=== PATIENT | female | born 1995 | race Caucasian/White ===

== ENCOUNTER 2021-04-18 19:06 | Emergency (ER) | payer MEDICAID, SELFPAY ==
[2021-04-18 19:52] VITALS: BP 114/73; PULSE 95; RESP 18; TEMP 36.7; O2SAT 98
[2021-04-18 19:59] VITALS: BMI 26.6
--- NOTE | 2021-04-18 20:35 | ED_ITS ---
HPI - General Adult General Chief complaint: General Medical Stated complaint: needs a herpes culture Time Seen by Provider: 04/18/21 19:49 Source: patient Mode of arrival: ambulatory History of Present Illness HPI narrative: 25-year-old female presenting to the ED complaining of bump to perianal area that she noted today. Reports is painful/red. Concern for STI, is sexually active, admits was tested for STIs last week at [facility], results are pending. Denies pain with defecation, rectal bleeding, dysuria/hematuria, vaginal bleeding/discharge, abdominal pain, nausea/vomiting Onset (ago): unknown Related Data Previous Rx's Medication Instructions Recorded lidocaine HCl 2 % topical cream 1 appl TOPICAL BID PRN #118 ml 04/18/21 Allergies Allergy/AdvReac Type Severity Reaction Status Date / Time No Known Allergies Allergy Verified 04/18/21 19:59 pets Allergy Unknown rash Uncoded 10/26/14 00:00 Review of Systems Review of Systems: Constitutional: No Fever, No Chills ENT/Mouth: No Ear Pain, No Nasal Congestion, No sore throat, No Rhinorrhea, No Swallowing Difficulty Cardiovascular: No Chest Pain, No SOB Respiratory: No Cough, No Sputum Gastrointestinal: No Nausea, No Vomiting, No Diarrhea, No Constipation, No Abdominal pain, no rectal bleeding Genitourinary: No Dysuria, No Urinary Frequency, No Hematuria, No vaginal bleeding/discharge, No Urgency, No Flank Pain Musculoskeletal: No joint pain, No Myalgias, No Joint Swelling Skin: + Skin Lesions, No rash Yes all other systems are reviewed and are negative [facility] Past Medical History Attestation statement: The following information was validated with the patient. Social History Social History Advance Directives: No Advance Directives Information Provided: Yes Patient : No Physical Exam ED Vital Signs: Vital Signs - 24 hr 04/18/21 19:52 Temperature 98.0 F Pulse Rate 95 Respiratory Rate 18 Blood Pressure 114/73 Pulse Oximetry 98 BMI result Body Mass Index 26.6 Const General: cooperative, healthy appearing and no acute distress Orientation/consciousness: patient oriented x3 Limitations: no limitations HENMT Head: Yes normal to inspection, Yes normocephalic and Yes atraumatic Ears: hearing grossly normal bilaterally General nose exam: Normal external nose present Face and sinus: Yes normal facial exam Eyes General: appearance normal, both eyes and all related structures EOM: EOMs intact bilaterally Neck Neck: Yes normal visual inspection and Yes no meningeal signs Resp Effort & Inspection: normal respiratory effort and no respiratory distress Cardio Rate: regular rate Heart sounds: S1 normal heart sound present and S2 normal heart sound present GI Other: No evidence of herpetic like lesion Inspection: Yes normal to inspection Palpation (GI): Soft to palpation, nontender, no guarding and not rigid Rectal Exam - Female: External hemorrhoid(s) present (@ 4'o'clock position with overlying fissure. No thombosis. No cellulitis ) Skin Rashes: no rashes Wounds: no wounds Neuro General: patient oriented x3 and no meningeal signs Gait exam (Neuro): Normal gait present Extrem General: Yes normal to inspection Medical Decision Making MDM Narrative Medical decision making narrative: 25-year-old female presenting to the ED complaining of bump to perianal area that she noted today. Reports is painful/red. On exam vital signs stable, NAD, physical exam as above consistent with anal fissure. Also noted external nonthrombosed hemorrhoid. Patient does report straining/prolonged duration on toilet. Will swab for herpes culture due to patient concern, but hold on empiric treatment at this time Discussed worrisome signs and symptoms and strict return precautions. Medical Records Medical records reviewed: Yes I reviewed the patient's medical records. Lab Data Lab results reviewed: Yes I reviewed the patient's lab results. Discharge Plan Discharge Clinical Impression: Anal fissure, Hemorrhoid Patient Disposition: Home, Self-Care Instructions: Hemorrhoids (DC), Anal Fissure (ED) Additional Instructions: You have an anal fissure which is like a cut your perianal area. This is from straining and hard stools/constipation Start taking stool softeners. Avoid prolonged. On the toilet Topical lidocaine will help with pain. Your swab for herpes, the result will be back in 48-72 hours, we will call you with positive results only. Refrain from any sexual contact until we know the results of these cultures If symptoms persist or worsen, your unable to defecate, have rectal bleeding or abdominal pain return to the Prescriptions: New lidocaine HCl 2 % cream 1 appl topical BID PRN (Reason: pain) Qty: 118 0RF Referrals: Becca Teran DO [Primary Care Provider] - 5 days (As needed)
== END 2021-04-18 21:14 | disposition home or self-care (01) ==
PROVIDERS: Physician Assistant; Emergency Provider Internal Medicine; PCP Family Medicine
DX: K60.2 Anal fissure, unspecified (principal); K64.4 Residual hemorrhoidal skin tags
CPT/HCPCS: 87255; 99283

== ENCOUNTER 2022-11-07 09:36 | Emergency (ER) | payer MEDICAID, SELFPAY ==
[2022-11-07 09:59] VITALS: BP 110/60; PULSE 85; RESP 17; TEMP 36.4; O2SAT 96; BMI 28.1
--- NOTE | 2022-11-07 10:16 | ED_ITS ---
HPI - Asthma General Chief Complaint: Asthma Stated Complaint: asthma Time Seen by Provider: 11/07/22 10:08 Source: patient Mode of arrival: ambulatory Limitations: no limitations History of Present Illness HPI Narrative: Patient is a 27-year-old female with history of asthma presenting to the emergency department with 3 weeks of shortness of breath. Patient states that she has been using her albuterol inhaler as well as nebulizer treatments with only temporary relief. She denies fevers. Denies productive cough. Denies any chest pain. Does report some chest tightness. Reports that she used her nebulizer prior to arriving at the emergency department this morning. complaint: shortness of breath Onset (ago): week(s) Severity: moderate Associated symptoms: none Treatments Prior to Arrival: inhaled bronchodilator Related Data Previous Rx's Medication Instructions Recorded lidocaine HCl 2 % topical cream 1 appl topical BID PRN pain #118 mL 04/18/21 prednisone 20 mg tablet 20 mg PO DAILY 3 days #3 tabs 11/07/22 prednisone 20 mg tablet 40 mg PO DAILY 3 days #6 tabs 11/07/22 prednisone 20 mg tablet 60 mg PO DAILY 2 days #6 tabs 11/07/22 Allergies Allergy/AdvReac Type Severity Reaction Status Date / Time No Known Allergies Allergy Verified 04/18/21 19:59 pets Allergy Unknown rash Uncoded 10/26/14 00:00 Review of Systems Review of Systems: As per HPI. Yes all other systems are reviewed and are negative Constitutional: Constitutional: Reports as per HPI [facility] Social History Social History Advance Directives: No Advance Directives Information Provided: No Physical Exam Vital Signs: Vital Signs: Last Vital Signs Temp 97.5 F 11/07/22 09:59 Pulse 87 11/07/22 10:30 Resp 18 11/07/22 10:30 BP 110/60 11/07/22 09:59 Pulse Ox 96 11/07/22 09:59 O2 Del Method Room Air 11/07/22 09:59 BMI result Body Mass Index 28.1 Vital signs have been reviewed and appear to be correct. Blood pressure normal. Heart rate normal. Respiratory rate normal. Temperature normal. Oxygen saturation normal. Const: General: cooperative, healthy appearing and no acute distress Orientation/consciousness: oriented to person, oriented to place, oriented to time and patient oriented x3 Limitations: no limitations HEENT: Head: Yes normocephalic and Yes atraumatic Ears: external ears normal General nose exam: Normal external nose present Face and sinus: Yes face symmetric Mouth: oropharynx normal and moist mucous membranes Throat: Yes uvula midline Eyes: Pupils: Equal, round and reactive pupils present Neck: Neck: Yes normal visual inspection and Yes supple Resp: Effort & Inspection: normal respiratory effort and able to speak in complete sentences Auscultation: clear to auscultation bilaterally and diminished lung sounds (mildly diminished) diffuse Cardio: Rate: regular rate Rhythm: regular rhythm Heart sounds: S1 normal heart sound present and S2 normal heart sound present GI: Palpation (GI): Soft to palpation and nontender Auscultation: normoactive bowel sounds : General: Yes no CVA tenderness Back/Spine/Pelvis: Back: no CVA tenderness Skin: General skin exam: elasticity normal and turgor normal Neuro: General: oriented to person, oriented to place, oriented to time, patient oriented x3, moves all extremities, no focal motor deficits and CN's II- XI intact bilaterally Cranial nerves: Yes Equal, round and reactive pupils present Cognition (Neuro): normal cognition Extrem: General: Yes full ROM, Yes no pedal edema and Yes no calf tenderness Psych: Mental Status: mental status grossly normal Affect: normal affect Thought process: Normal thought process present Medications Administered Discontinued Medications Generic Name Dose Route Start Last Admin Trade Name Freq PRN Reason Stop Dose Admin Albuterol Sulfate 2.5 mg 11/07/22 10:14 11/07/22 10:28 Albuterol Sulfate (0.083%) 2.5 Mg/3 Ml Vial.Neb INHALE 11/07/22 10:15 2.5 mg ONCE ONE Administration Prednisone 60 mg 11/07/22 10:16 11/07/22 10:47 Prednisone 20 Mg Tablet PO 11/07/22 10:17 60 mg ONCE ONE Administration Medical Decision Making Medical Decision Making MDM Narrative: Patient is a 27-year-old female with history of asthma presenting to the emergency department with 3 weeks of shortness of breath. On exam patient is awake, A+Ox3, VS WNL, afebrile, normal neurological exam without focal deficits, lungs clear but mildly diminished throughout. Given reported symptoms and physical exam findings, initial differential includes asthma exacerbation, viral illness. Do not suspect bronchitis or pneumonia. Will give albuterol treatment in the ED as well as begin patient on a prednisone taper. Increased air moveme nt noted post treatment. Instructed patient to follow up with PCP this week. Prednisone taper prescribed. Return precautions discussed at bedside. Patient verbalized understanding of and agreement with plan. Differential Diagnosis Differential Diagnoses: The differential diagnosis associated with the presentation includes As per MDM. External Record Review External record reviewed: Inpatient record, Office record and Outpatient record Prescription Management I considered prescription management with: Other (Prednisone) Discharge Plan Discharge Clinical Impression: Asthma with acute exacerbation Patient Disposition: Home, Self-Care Instructions: Prednisone (By mouth), Asthma (DC) Additional Instructions: You were evaluated in the emergency department today for shortness of breath. Your symptoms improved in the ED with a breathing treatment. Your shortness of breath is most likely due to an asthma exacerbation. You are being prescribed a tapering dose of prednisone to decrease inflammation. Please schedule an appointment for follow-up with your primary care physician within 2 days. Return to the emergency department if you experience worsening cough, fever 100.4? F or greater, recurrent vomiting, chest pain, shortness of breath, or any other concerning symptoms. Prescriptions: New prednisone 20 mg tablet 60 mg PO DAILY 2 Days Qty: 6 0RF prednisone 20 mg tablet 40 mg PO DAILY 3 Days Qty: 6 0RF Rx Instructions: Begin taking the 40mg dose the day after your last 60mg dose prednisone 20 mg tablet 20 mg PO DAILY 3 Days Qty: 3 0RF Rx Instructions: Begin taking the 20mg dose the day after you take the last 40mg dose No Action lidocaine HCl 2 % cream 1 appl topical BID PRN (Reason: pain) Qty: 118 0RF
[2022-11-07] MEDS: Albuterol Sulfate (0.083%) 2.5 MG/3 ML VIAL.NEB INHALE (10:28)
[2022-11-07 10:30] VITALS: PULSE 87; RESP 18; O2SAT 97
[2022-11-07] MEDS: predniSONE 20 MG TABLET 60 MG PO (10:47)
== END 2022-11-07 12:00 | disposition home or self-care (01) ==
PROVIDERS: Emergency Provider Emergency Medicine; PCP Family Medicine
DX: J45.901 Unspecified asthma with (acute) exacerbation (principal)
CPT/HCPCS: 94640; 99284

== ENCOUNTER 2022-11-20 17:06 | Outpatient (REF) | payer MEDICAID, SELFPAY ==
[2022-11-20 20:46] LABS: CT PCR NOT DETECTED (Not Detect.); NG PCR NOT DETECTED (Not Detect.)
== END 2022-11-20 17:07 | disposition home or self-care (01) ==
LOC: HO.HHCLNP 17:06
PROVIDERS: Visit Provider Family Medicine
DX: Z01.419 Encounter for gynecological examination (general) (routine) without abnormal findings (principal)
CPT/HCPCS: 0353U; 88142

== ENCOUNTER 2022-12-28 18:13 | Outpatient (REF) | payer MEDICAID, SELFPAY ==
[2022-12-29 10:39] LABS: BV Int Neg Control Negative (Negative); BV Int Pos Control Positive (Positive)
== END 2022-12-28 18:14 | disposition home or self-care (01) ==
LOC: HO.HHCLNP 18:13
PROVIDERS: Visit Provider Nurse Practitioner Primary Care
DX: N94.9 Unspecified condition associated with female genital organs and menstrual cycle (principal)
CPT/HCPCS: 87480; 87510; 87660

== ENCOUNTER 2023-01-26 15:21 | Outpatient (REF) | payer MEDICAID, SELFPAY | END 2023-01-26 15:22 | disposition home or self-care (01) | LOC: HO.RESP 15:21 | PROVIDERS: PCP Family Medicine; Visit Provider Family Medicine | DX: J45.30 Mild persistent asthma, uncomplicated (principal) | CPT/HCPCS: 94010; 94727; 94729 ==

== ENCOUNTER 2023-02-09 17:50 | Emergency (ER) | payer MEDICAID, SELFPAY ==
--- NOTE | ~2023-02-09 | XR_ITS ---
EXAMINATION: XR CHEST CLINICAL INFORMATION: Shortness of breath COMPARISON: 08/24/2017 TECHNIQUE: 2 views of the chest were obtained. FINDINGS: No significant abnormality is noted involving the heart, lungs, mediastinum, bony thorax or soft tissues. XR/XR chest 2V IMPRESSION: Unremarkable examination.
[2023-02-09 17:57] VITALS: BP 115/61; PULSE 96; RESP 16; TEMP 36.7; O2SAT 99; BMI 30.4
--- NOTE | 2023-02-09 18:05 | ED.GENADULT ---
HPI - General Adult General Chief complaint: Upper Respiratory Symptoms Stated complaint: FEELS LIKE SHE CAN'T BREATHE/ASTHMA Time Seen by Provider: 02/09/23 19:47 Source: patient Mode of arrival: ambulatory Limitations: no limitations History of Present Illness HPI narrative: Patient is a 27-year-old female with history of asthma presenting to the ED with complaint of 2-3 months of worsening shortness of breath. States she went to the clinic, was treated with 2 weeks of steroids, saw scientific recruiter 2 weeks ago but has not been contacted yet with results of testing. Using albuterol with little relief. Denies chest pain or palpitations. Denies calf pain or swelling. MD complaint: Shortness of breath Onset (ago): month(s) Relieving factors: medication Exacerbating factors: none Associated symptoms: denies other symptoms Treatments prior to arrival: other (Albuterol) Related Data Previous Rx's Medication Instructions Recorded lidocaine HCl 2 % topical cream 1 appl topical BID PRN pain #118 mL 04/18/21 prednisone 20 mg tablet 20 mg PO DAILY 3 days #3 tabs 11/07/22 prednisone 20 mg tablet 40 mg (2 x 20 mg) PO DAILY 3 days 11/07/22 #6 tabs prednisone 20 mg tablet 60 mg (3 x 20 mg) PO DAILY 2 days 11/07/22 #6 tabs azithromycin 250 mg tablet See Rx Instructions PO .COMPLEX #6 02/09/23 tabs fluticasone propionate 100 2 inh inhalation BID #60 ea 02/09/23 mcg/actuation blister powder for inhalation (Flovent Diskus) prednisone 20 mg tablet 40 mg (2 x 20 mg) PO DAILY #10 tabs 02/09/23 Allergies Allergy/AdvReac Type Severity Reaction Status Date / Time No Known Allergies Allergy Verified 04/18/21 19:59 pets Allergy Unknown rash Uncoded 10/26/14 00:00 Review of Systems Review of Systems: As per HPI. Yes all other systems are reviewed and are negative Constitutional: Constitutional: Reports as per HPI Physical Exam ED Vital Signs: Vital Signs - 24 hr 02/09/23 17:57 Temperature 98.0 F Pulse Rate 96 Respiratory Rate 16 Blood Pressure 115/61 Pulse Oximetry 99 Oxygen Delivery Method Room Air BMI result Body Mass Index 30.4 Vital signs have been reviewed and appear to be correct. Blood pressure normal. Heart rate normal. Respiratory rate normal. Temperature normal. Oxygen saturation normal. Const General: cooperative, healthy appearing and no acute distress Orientation/consciousness: oriented to person, oriented to place, oriented to time and patient oriented x3 Limitations: no limitations HENMT Head: Yes normocephalic and Yes atraumatic Ears: external ears normal General nose exam: Normal external nose present Face and sinus: Yes face symmetric Mouth: oropharynx normal and moist mucous membranes Throat: Yes uvula midline Eyes Pupils: Equal, round and reactive pupils present Neck Neck: Yes normal visual inspection and Yes supple Resp Effort & Inspection: normal respiratory effort and able to speak in complete sentences Auscultation: clear to auscultation bilaterally and wheezes scattered wheezes Cardio Rate: regular rate Rhythm: regular rhythm Heart sounds: S1 normal heart sound present and S2 normal heart sound present GI Palpation (GI): Soft to palpation and nontender Auscultation: normoactive bowel sounds General: Yes no CVA tenderness Back/Spine/Pelvis Back: no CVA tenderness Skin General skin exam: elasticity normal and turgor normal Neuro General: oriented to person, oriented to place, oriented to time, patient oriented x3, moves all extremities, no focal motor deficits and CN's II-XI intact bilaterally Cranial nerves: Yes Equal, round and reactive pupils present Cognition (Neuro): normal cognition Extrem General: Yes full ROM, Yes no pedal edema and Yes no calf tenderness Psych Mental Status: mental status grossly normal Affect: normal affect Thought process: Normal thought process present Medical Decision Making Medical Decision Making MDM Narrative: Patient is a 27-year-old female with history of asthma presenting to the ED with complaint of 2-3 months of worsening shortness of breath. On exam patient is awake, A+Ox3, VS WNL, afebrile, normal neurological exam without focal deficits, physical exam findings as above. Given reported symptoms and physical exam findings, initial differential includes asthma exacerbation, bronchitis, pneumonia. Unlikely viral illness given length of symptoms. X-ray notable for no evidence of pneumonia. My interpretation is in agreement with the radiologist's interpretation. Will treat with azithromycin, short course of prednisone and prescribed Flovent, advised patient to follow-up with PCP/scientific recruiter. Return precautions discussed. Patient verbalized understanding of and agreement with plan. Differential Diagnosis Differential Diagnoses: The differential diagnosis associated with the presentation includes As per MDM. Admission/Observation Consideration of admission/observation: Escalation of care including admission/observation considered Independent Interpretation I performed an independent interpretation of an: Plain X-Ray Interpretation: No evidence of pneumonia on chest x-ray Radiology Impression Discussion of test interpretation with radiology: I have reviewed the radiologist's reading. Radiologist Impression: XR/XR chest 2V IMPRESSION: Unremarkable examination. External Record Review External record reviewed: Inpatient record, Office record and Outpatient record Prescription Management I considered prescription management with: Other Discharge Plan Discharge Clinical Impression: Asthma, Bronchitis Patient Disposition: Home, Self-Care Instructions: Asthma (DC) Additional Instructions: You were evaluated in the emergency department today for several months of shortness of breath. You are being prescribed a short course of steroids as well as an inhaled corticosteroid and a course of antibiotics. Please follow-up with your primary care provider and scientific recruiter. Return to the emergency department if you develop chest pain, palpitations, worsening shortness of breath, fever or any other concerning symptoms. Prescriptions: New prednisone 20 mg tablet 40 mg PO DAILY Qty: 10 0RF Flovent Diskus 100 mcg/actuation blister with device 2 inh inhalation BID Qty: 60 0RF azithromycin 250 mg tablet See Rx Instructions .ROUTE .COMPLEX Qty: 6 0RF Rx Instructions: For 250 mg dose pack: take 500 mg today (day 1), then 250 mg for 4 days (days 2-5) No Action lidocaine HCl 2 % cream 1 appl topical BID PRN (Reason: pain) Qty: 118 0RF prednisone 20 mg tablet 60 mg PO DAILY 2 Days Qty: 6 0RF prednisone 20 mg tablet 40 mg PO DAILY 3 Days Qty: 6 0RF Rx Instructions: Begin taking the 40mg dose the day after your last 60mg dose prednisone 20 mg tablet 20 mg PO DAILY 3 Days Qty: 3 0RF Rx Instructions: Begin taking the 20mg dose the day after you take the last 40mg dose
[2023-02-09] MEDS: Azithromycin 500 MG TABLET PO (20:38)
[2023-02-09] MEDS: predniSONE 20 MG TABLET 40 MG PO (20:38)
== END 2023-02-09 20:40 | disposition home or self-care (01) ==
LOC: HO.ED 20:27
PROVIDERS: Emergency Provider Student in an Organized Health Care Education/Training Program; PCP Family Medicine
DX: J40 Bronchitis, not specified as acute or chronic (principal); R06.02 Shortness of breath
CPT/HCPCS: 71046; 99282; 99283

== ENCOUNTER 2023-03-10 13:18 | Outpatient (AMB) | payer MEDICAID, SELFPAY ==
[2023-03-10 13:20] VITALS: BP 126/72; PULSE 87; O2SAT 98; BMI 30.6
--- NOTE | 2023-03-10 13:20 | MHC.OFFVIS ---
Intake Vital Signs 03/10/23 13:20 Height 5 ft 5 in Weight 184 lb BMI 30.6 BP 126/72 Blood Pressure Location Rt brachial Position Sitting Pulse 87 Pulse Source Pulse Oximeter Pulse Oximetry (%) 98 Oxygen Delivery Method Room Air Intake Visit Reasons: Moderate Persistent Asthma Stuffing Machine Operator Required: No Head Waiter/Waitress: Head Waiter/Waitress offered & declined Accompanied by: Self / Same As Patient Allergies trees, grass Allergy (Severe, Uncoded 03/10/23 13:28) Difficulty Breathing pets Allergy (Unknown, Uncoded 03/10/23 13:28) rash Medication List - Last Reconciled 03/10/23 by Darline Crook LPN albuterol sulfate 90 mcg/actuation (Ventolin HFA) 2 puffs inhalation Q4-6H PRN albuterol sulfate 2.5 mg inhalation Q4-6H PRN budesonide-formoterol 160-4.5 mcg/actuation (Symbicort) 2 puffs inhalation Q12H cetirizine (Zyrtec) 10 mg PO DAILY PRN lidocaine HCl 2% 1 appl topical BID PRN montelukast 10 mg PO DAILY prednisone 20 mg PO DAILY 3 days HPI Moderate Persistent Asthma HPI Details Danii is a pleasant 27 year old female, never smoker, with underlying asthma since childhood and eczema. She was referred by PCP for pulmonary evaluation. She was seen in [facility] twice over the last three months due to worsening control of asthma. She received two courses of prednisone during these evaluations. She has been suboptimally controlled on symbicort, singular, albuterol MDI/neb and zyrtec. Previously used advair with minimal effect. Most recently she reports symptoms consistent with dermatographia and worsening eczema. She continues with intermittent dyspnea with moderate exertion, wheezing, chest tightness and paroxsymal nocturnal dyspnea. She has been using her albuterol MDI on a daily basis with good effect. She reports multiple family members with asthma. She reports seasonal allergies using zyrtec with moderate effect. She denies any occupational exposures. [facility] Social History (Updated 03/10/23 @ 13:29 by Darline Crook LPN) Patient Tobacco Use Status: Never used Tobacco Review of Systems Const Denies chills, Denies excessive sweating, Denies fever(s), Denies headache(s) and Denies night sweats ENT Reports Normal hearing present, Denies headache(s), Denies nasal congestion, Denies nasal discharge, Denies post nasal drip and Denies sore throat Card Denies chest pain, Denies chest pain at rest, Denies chest pain with activity, Denies claudication, Denies leg edema and Denies orthopnea Resp Denies chest congestion, Denies excessive phlegm production, Denies pain on inspiration, Denies pain with cough and Denies stridor Musc Denies myalgias Neuro Reports Normal hearing present and Denies headache(s) Endo Denies excessive sweating Basilio/Lymph Denies lymphadenopathy Aller/Immun Denies seasonal rhinorrhea Physical Exam Vital Signs: Last Vital Signs Pulse 87 03/10/23 13:20 BP 126/72 03/10/23 13:20 Pulse Ox 98 03/10/23 13:20 Oxygen Delivery Method Room Air 03/10/23 13:20 BMI result Body Mass Index 30.6 Const General: cooperative, healthy appearing, comfortable, no acute distress, well developed and alert Orientation/consciousness: patient oriented x3 Limitations: no limitations HEENT Head: Yes normal to inspection, Yes normocephalic and Yes atraumatic Ears: hearing grossly normal bilaterally and external ears normal Eyes General: appearance normal, both eyes and all related structures Eyelids: Yes eyelids normal Sclerae: sclerae normal EOM: EOMs intact bilaterally Neck Neck: Yes normal visual inspection and Yes no lymphadenopathy Lymphatic: no lymphadenopathy noted Chest Chest palpation & inspection: normal inspection of the chest Resp Effort & Inspection: normal respiratory effort, able to speak in complete sentences, no audible wheezes, no cough, no stridor, not tachypneic, no tripod positioning and no use of accessory muscles Auscultation: clear to auscultation bilaterally Cardio Jugular venous distension: no JVD Rate: regular rate Rhythm: regular rhythm Skin Other: warm, dry General skin exam: no rashes or lesions noted Neuro General: patient oriented x3 Cranial nerves: Yes Normal hearing present Cognition (Neuro): normal cognition Gait exam (Neuro): Normal gait present Extrem General: Yes normal to inspection, Yes capillary refill normal, Yes no clubbing, cyanosis or edema and Yes no pedal edema Psych Appearance: grossly normal and well kempt Speech and movement: Normal speech and movement present and Clear speech present Affect: normal affect Attitude: cooperative Thought process: Normal thought process present Thought content: Normal thought content present Insight: Good insight present (Psych) Judgement: Good judgement present (Psych) Results Reviewed Results Reviewed: [address] [address] XRay Report Signed Patient: Danii Souza MR#: [id number] : 1995 Acct:[id number] Age/Sex: 27 / F ADM Date: 02/09/23 Loc: .ED Attending Dr: Ordering Physician: Sailaja Beasley NP Date of Service: 02/09/23 Procedure(s): XR chest 2V Accession Number(s): [id number] cc: Becca Teran DO; Sailaja Beasley NP~ EXAMINATION: XR CHEST CLINICAL INFORMATION: Shortness of breath COMPARISON: 08/24/2017 TECHNIQUE: 2 views of the chest were obtained. FINDINGS: No significant abnormality is noted involving the heart, lungs, mediastinum, bony thorax or soft tissues. XR/XR chest 2V IMPRESSION: Unremarkable examination. Dictated By: Nicolás Phillips MD Signed By: <Electronically signed by Nicolás Phillips MD in OV> 02/09/231946 Assessment & Plan Assessment & Plan (1) Asthma: Code(s): J45.909 - Unspecified asthma, uncomplicated (2) Environmental allergies: Code(s): Z91.09 - Other allergy status, other than to drugs and biological substances Plan Danii's symptoms are likely related to underlying asthma with an allergic component. Reviewed PFTs which are suggestive of asthma. CXR unremarkable. Will send for RAST. Encouraged patient to continue to use symbicort which she has recently started and will return for a close follow up, as she is likely a candidate for dupixent. We discussed an allergy referral, she has one placed and scheduled for July. All questions were answered and patient is in agreement of plan. Will follow up in 3-4 weeks or sooner if needed. Orders: Orders Complete Blood Count Auto Diff Today Z91.09 - Other allergy status, other than to drugs and biological substances Immunoglobulin E Today Z91.09 - Other allergy status, other than to drugs and biological substances Resp Allergy Profile Region I Today Z91.09 - Other allergy status, other than to drugs and biological substances Coding Level of Care Code New Pt Level 4 (22940) Diagnoses Asthma J45.909 Environmental allergies Z91.09
== END 2023-03-10 14:00 | disposition home or self-care (01) ==
PROVIDERS: PCP Family Medicine; Visit Provider Nurse Practitioner Family
DX: J45.909 Unspecified asthma, uncomplicated (principal); Z91.09 Other allergy status, other than to drugs and biological substances
CPT/HCPCS: 99204

== ENCOUNTER → 2023-03-10 13:18 | Outpatient (BNVA) | payer MEDICAID, SELFPAY | PROVIDERS: PCP Family Medicine; Visit Provider Nurse Practitioner Family | DX: Z91.09 Other allergy status, other than to drugs and biological substances (principal); Z79.899 Other long term (current) drug therapy | CPT/HCPCS: 99212 ==

== ENCOUNTER 2023-03-31 12:54 | Outpatient (REF) | payer MEDICAID, SELFPAY ==
[2023-03-31 13:10] LABS: MANUAL DIFF FLAG NO
[2023-03-31 14:05] LABS: Basophils Percent Auto 0.6 % (0-2); Eosinophils Absolute Auto 0.3 X10*3/uL (0.0-0.4); Eosinophils Percent Auto 4.2 % (0-4); Hematocrit 40.4 % (37.0-47.0); Hemoglobin 13.8 g/dl (12.0-16.0); Imm Gran Abs Auto 0.01 X10*3/uL (0.00-0.03); Imm Gran Pct Auto 0.1 % (0.0-0.4); Lymphocytes Absolute Auto 1.8 X10*3/uL (1.2-4.9); Lymphocytes Percent Auto 25.3 % (20-40); Mean Corpuscular HGB Conc 34.2 g/dl (31.0-35.0); Mean Corpuscular Hemoglobin 31.9 pg (27.0-33.0); Mean Corpuscular Volume 93.5 fL (80.0-98.0); Mean Platelet Volume 10.1 fL (9.4-12.3); Monocytes Absolute Auto 0.7 X10*3/uL (0.1-1.2); Monocytes Percent Auto 10.5 % (2-11); Neutrophils Absolute Auto 4.1 x10*3/uL (2.0-8.3); Neutrophils Percent Auto 59.3 % (45-73); Platelet Count 278 X10*3/uL (160-400); Red Blood Count 4.32 X10*6/uL (4.20-5.50); Red Cell Distribution Width 12.2 % (11.0-16.0); White Blood Count 6.9 X10*3/uL (4.8-10.8)
[2023-04-02 18:59] LABS: Class Alternaria alternata 0/1; Class Aspergillus fumigatus 0/1; Class Bermuda Grass 1; Class Birch 4; Class Cat Dander 5; Class Cladosporium herbarum 0/1; Class Cockroach 2; Class Common Ragweed 2; Class Cottonwood 1; Class Derm. pterony 2; Class Dermatophagoides farinae 2; Class Dog Dander 6; Class Elm 2; Class Maple Box Elder 1; Class Mountain Cedar 1; Class Mouse Urine Protein 5; Class Mugwort 1; Class Oak 3; Class Penicillium crysogenum 0/1; Class Rough Pigweed 1; Class Sheep Sorrel 1; Class Sycamore 1; Class Timothy Grass 1; Class Walnut Tree 2; Class White Ash 1; Class White Mulberry 1; D001 IgE D pteronyssinus 0.97 kU/L; D002 - IgE D farinae 0.85 kU/L; E005 - IgE Dog Dander >100 kU/L; G002 IgE Bermuda Grass 0.54 kU/L; G006 - IgE Timothy Grass 0.66 kU/L; I006-IgE Cockroach, German 2.52 kU/L; Immunoglobulin E 3172 kU/L (<OR=114); M001 IgE Penicillium chrysogen 0.18 kU/L; M003 - IgE Aspergillus fumigat 0.21 kU/L; M006 - IgE Alternaria alternat 0.13 kU/L; T001 IgE Maple/Box Elder 0.63 kU/L; T006 - IgE Cedar, Mountain 0.52 kU/L; T008 IgE Elm, American 0.84 kU/L; T010 - IgE Walnut 0.74 kU/L; T011 - IgE Maple Leaf Sycamore 0.63 kU/L; T014 - IgE Cottonwood 0.67 kU/L; T015 - IgE Ash, White 0.67 kU/L; T070 - IgE White Mulberry 0.51 kU/L; W001 - IgE Ragweed, Short 0.78 kU/L; W006 - IgE Mugwort 0.53 kU/L; W014 IgE Pigweed, Common 0.54 kU/L
== END 2023-03-31 12:55 | disposition home or self-care (01) ==
LOC: HO.LAB 12:54
PROVIDERS: PCP Family Medicine; Visit Provider Nurse Practitioner Family
DX: Z91.09 Other allergy status, other than to drugs and biological substances (principal)
CPT/HCPCS: 36415; 82785; 85025; 86003

== ENCOUNTER 2023-04-07 10:23 | Outpatient (AMB) | payer MEDICAID, SELFPAY ==
--- NOTE | 2023-04-07 10:57 | A.OFFVIS_ITS ---
Intake Vital Signs 3 04/07/23 10:58 Height 5 ft 5 in Weight 179 lb BMI 29.8 BP 114/70 Blood Pressure Location Rt brachial Position Sitting Pulse 72 Pulse Source Pulse Oximeter Pulse Oximetry (%) 100 Oxygen Delivery Method Room Air Intake Visit Reasons: moderate persistent asthma : 4 week f/u Electric Sealing Machine Operator Required: No Surface Grinder Tender: Surface Grinder Tender offered & declined Accompanied by: Self / Same As Patient Allergies trees, grass Allergy (Severe, Uncoded 04/07/23 11:00) Difficulty Breathing pets Allergy (Unknown, Uncoded 04/07/23 11:00) rash Medication List - Last Reconciled 04/07/23 by Darline Crook LPN albuterol sulfate 90 mcg/actuation (Ventolin HFA) 2 puffs inhalation Q4-6H PRN albuterol sulfate 2.5 mg inhalation Q4-6H PRN budesonide-formoterol 160-4.5 mcg/actuation (Symbicort) 2 puffs inhalation Q12H cetirizine (Zyrtec) 10 mg PO DAILY PRN montelukast 10 mg PO DAILY HPI moderate persistent asthma : 4 week f/u 2 HPI0 Details Danii is a pleasant 27 year old female, never smoker, with underlying asthma since childhood, eczema and dermatographism. She was seen in [facility] twice over the last three months due to worsening control of asthma, recieving two courses of prednisone during these evaluations. She has been suboptimally controlled on symbicort 160mcg, singular, albuterol MDI/neb and zyrtec BID. She continues to use daily albuterol due to persistent chest tightness, dyspnea and wheezing. Today she presents to review labs, PFT and discuss biologic therapy. [facility] Social History (Updated 04/07/23 @ 11:02 by Darline Crook LPN) Patient Tobacco Use Status: Never used Tobacco Smoked in Last 30 Days: No Review of Systems Const Denies chills, Denies excessive sweating, Denies fever(s), Denies headache(s) and Denies night sweats ENT Reports Normal hearing present, Denies headache(s), Denies nasal congestion, Denies nasal discharge, Denies post nasal drip and Denies sore throat Card Denies chest pain, Denies chest pain at rest, Denies chest pain with activity, Denies claudication, Denies leg edema and Denies orthopnea Resp Denies chest congestion, Denies excessive phlegm production, Denies pain on inspiration, Denies pain with cough and Denies stridor Musc Denies myalgias Neuro Reports Normal hearing present and Denies headache(s) Endo Denies excessive sweating Basilio/Lymph Denies lymphadenopathy Aller/Immun Denies seasonal rhinorrhea Physical Exam Vital Signs: Last Vital Signs Pulse 72 04/07/23 10:58 BP 114/70 04/07/23 10:58 Pulse Ox 100 04/07/23 10:58 Oxygen Delivery Method Room Air 04/07/23 10:58 BMI result Body Mass Index 29.8 Const General: cooperative, healthy appearing, comfortable, no acute distress, well developed and alert Orientation/consciousness: patient oriented x3 Limitations: no limitations HEENT Head: Yes normal to inspection, Yes normocephalic and Yes atraumatic Ears: hearing grossly normal bilaterally and external ears normal Eyes General: appearance normal, both eyes and all related structures Eyelids: Yes eyelids normal Sclerae: sclerae normal EOM: EOMs intact bilaterally Neck Neck: Yes normal visual inspection and Yes no lymphadenopathy Lymphatic: no lymphadenopathy noted Chest Chest palpation & inspection: normal inspection of the chest Resp Effort & Inspection: normal respiratory effort, able to speak in complete sentences, no audible wheezes, no cough, no stridor, not tachypneic, no tripod positioning and no use of accessory muscles Auscultation: clear to auscultation bilaterally Cardio Jugular venous distension: no JVD Rate: regular rate Rhythm: regular rhythm Skin Other: warm, dry, eczema on BUE Neuro General: patient oriented x3 Cranial nerves: Yes Normal hearing present Cognition (Neuro): normal cognition Gait exam (Neuro): Normal gait present Extrem General: Yes normal to inspection, Yes capillary refill normal, Yes no clubbing, cyanosis or edema and Yes no pedal edema Psych Appearance: grossly normal and well kempt Speech and movement: Normal speech and movement present and Clear speech present Affect: normal affect Attitude: cooperative Thought process: Normal thought process present Thought content: Normal thought content present Insight: Good insight present (Psych) Judgement: Good judgement present (Psych) Results Reviewed Results Reviewed: Assessment & Plan Assessment & Plan (1) Asthma: Code(s): J45.909 - Unspecified asthma, uncomplicated Qualifiers: Asthma severity: severe Asthma persistence: persistent Asthma complication type: unspecified Qualified Code(s): J45.50 - Severe persistent asthma, uncomplicated (2) Environmental allergies: Code(s): Z91.09 - Other allergy status, other than to drugs and biological substances Plan Reviewed RAST which revealed multiple environmental allergens as well as IgE of 3172 and elevated eosinophils. PFT also revealed moderate obstructive with reversibility postbronchodilation and significant response to bronchodilators. She continues with persistent wheezing, chest tightness and dyspnea despite high dose symbicort and has required two doses of steroids in the last 6 months. We discussed starting dupixent and patient would like to move forward with this treatment. Will send prescription for loading dose of 600 mg followed by 300 mg q2 weeks. She is aware she will be notified once dupixent is approved. All questions were answered and patient is in agreement of plan. Will follow up with patient in three months to review response to biologic or sooner if needed. Coding Level of Care Code Est Pt Level 4 (75871) Diagnoses Severe persistent asthma, unspecified whether complicated J45.50 Asthma severity: severe Asthma persistence: persistent Asthma complication type: unspecified Environmental allergies Z91.09
[2023-04-07 10:58] VITALS: BP 114/70; PULSE 72; O2SAT 100; BMI 29.8
== END 2023-04-07 11:38 | disposition home or self-care (01) ==
PROVIDERS: PCP Family Medicine; Visit Provider Nurse Practitioner Family
DX: J45.50 Severe persistent asthma, uncomplicated (principal); Z91.09 Other allergy status, other than to drugs and biological substances
CPT/HCPCS: 99214

== ENCOUNTER → 2023-04-07 10:23 | Outpatient (BNVA) | payer MEDICAID, SELFPAY | PROVIDERS: PCP Family Medicine; Visit Provider Nurse Practitioner Family | DX: J45.50 Severe persistent asthma, uncomplicated (principal); Z91.09 Other allergy status, other than to drugs and biological substances | CPT/HCPCS: 99212 ==

== ENCOUNTER → 2023-04-21 09:51 | Outpatient (BNVA) | payer MEDICAID, SELFPAY | PROVIDERS: PCP Family Medicine; Visit Provider Nurse Practitioner Family ==

== ENCOUNTER 2023-06-14 18:08 | Outpatient (REF) | payer MEDICAID, SELFPAY ==
[2023-06-15 11:54] LABS: CT PCR NOT DETECTED (Not Detect.); NG PCR NOT DETECTED (Not Detect.)
[2023-06-15 12:20] LABS: BV Int Neg Control Negative (Negative); BV Int Pos Control Positive (Positive)
[2023-06-19 08:43] LABS: C. Trachomatis RNA TMA, Throat NOT DETECTED; N. gonorrhoeae RNA TMA, Throat NOT DETECTED
== END 2023-06-14 18:09 | disposition home or self-care (01) ==
LOC: HO.HHCLNP 18:08
PROVIDERS: Visit Provider Internal Medicine
DX: J06.0 Acute laryngopharyngitis (principal)
CPT/HCPCS: 0353U; 87480; 87491; 87510; 87591; 87660

== ENCOUNTER 2023-07-05 15:42 | Outpatient (REF) | payer MEDICAID, SELFPAY ==
--- NOTE | ~2023-07-05 | XR_ITS ---
EXAMINATION: XR CHEST CLINICAL INFORMATION: Productive cough x1 month. COMPARISON: Chest radiograph dated 02/09/2023. TECHNIQUE: 2 views of the chest were obtained. FINDINGS: Heart size is normal. Both lungs are clear. There is no pleural effusion or pneumothorax. No acute osseous abnormality. XR/XR chest 2V IMPRESSION: No acute cardiopulmonary disease. Stable appearance of the heart and lungs.
== END 2023-07-05 15:43 | disposition home or self-care (01) ==
LOC: HO.HHCX 15:42
PROVIDERS: Visit Provider Internal Medicine
DX: R05.1 Acute cough (principal)
CPT/HCPCS: 71046

== ENCOUNTER 2023-07-14 09:09 | Outpatient (REF) | payer MEDICAID, SELFPAY ==
[2023-07-15 12:11] LABS: CT PCR NOT DETECTED (Not Detect.); NG PCR NOT DETECTED (Not Detect.)
[2023-07-20 14:19] LABS: Bacterial Vaginosis PCR POSITIVE (Negative); Candida Group PCR DETECTED (Not Detect); Candida glab krusei PCR NOT DETECTED (Not Detect); Trichomonas vaginalis PCR NOT DETECTED (Not Detect)
== END 2023-07-14 09:10 | disposition home or self-care (01) ==
LOC: HO.HHCLNP 09:09
PROVIDERS: Visit Provider Family Medicine
DX: R39.9 Unspecified symptoms and signs involving the genitourinary system (principal)
CPT/HCPCS: 0352U; 0353U; 87480; 87510; 87660

== ENCOUNTER 2023-07-14 20:27 | Outpatient (REF) | payer MEDICAID, SELFPAY ==
[2023-07-14 21:03] LABS: Appearance Urine Cloudy; Color Urine Yellow; Glucose Urine UA Negative (Negative); Leukocyte Esterase Urine Small (1+) (Negative); Nitrite Urine Negative (Negative); UMIC TRIGGER UACC YES; Urine Blood Negative (Negative); Urine Ketones Negative (Negative); Urine Protein Negative (Neg-Trace)
[2023-07-14 21:13] LABS: Bacteria Urine 2+ (None Seen); Hyaline Casts Urine 0-2 /LPF (0-2); RBC Urine 0-2 /HPF (0-2); UACC Culture Trigger YES; WBC Urine 0-5 /HPF (0-5)
== END 2023-07-14 20:28 | disposition home or self-care (01) ==
LOC: HO.LNP 20:27
PROVIDERS: Visit Provider Family Medicine
DX: R39.9 Unspecified symptoms and signs involving the genitourinary system (principal)
CPT/HCPCS: 0352U; 0353U; 81001; 87086; 87088

== ENCOUNTER 2023-08-06 17:26 | Outpatient (REF) | payer MEDICAID, SELFPAY ==
[2023-08-07 10:49] LABS: Bacterial Vaginosis PCR POSITIVE (Negative); Candida Group PCR NOT DETECTED (Not Detect); Candida glab krusei PCR NOT DETECTED (Not Detect); Trichomonas vaginalis PCR NOT DETECTED (Not Detect)
== END 2023-08-06 17:27 | disposition home or self-care (01) ==
LOC: HO.HHCLNP 17:26
PROVIDERS: Visit Provider Internal Medicine
DX: N89.8 Other specified noninflammatory disorders of vagina (principal)
CPT/HCPCS: 0352U

== ENCOUNTER 2023-09-23 17:48 | Outpatient (REF) | payer MEDICAID, SELFPAY ==
[2023-09-24 09:06] LABS: Bacterial Vaginosis PCR POSITIVE (Negative); Candida Group PCR DETECTED (Not Detect); Candida glab krusei PCR NOT DETECTED (Not Detect); Trichomonas vaginalis PCR NOT DETECTED (Not Detect)
[2023-09-24 10:13] LABS: CT PCR NOT DETECTED (Not Detect.); NG PCR NOT DETECTED (Not Detect.)
== END 2023-09-23 17:49 | disposition home or self-care (01) ==
LOC: HO.LNP 17:48
PROVIDERS: Visit Provider Internal Medicine
DX: A64 Unspecified sexually transmitted disease (principal)
CPT/HCPCS: 0352U; 87491; 87591

== ENCOUNTER 2023-12-27 18:14 | Outpatient (REF) | payer MEDICAID, SELFPAY ==
[2023-12-28 15:27] LABS: Bacterial Vaginosis PCR POSITIVE (Negative); Candida Group PCR NOT DETECTED (Not Detect); Candida glab krusei PCR NOT DETECTED (Not Detect); Trichomonas vaginalis PCR NOT DETECTED (Not Detect)
[2023-12-28 15:51] LABS: CT PCR NOT DETECTED (Not Detect.); NG PCR NOT DETECTED (Not Detect.)
== END 2023-12-27 18:15 | disposition home or self-care (01) ==
LOC: HO.LNP 18:14
PROVIDERS: Visit Provider Internal Medicine
DX: N89.8 Other specified noninflammatory disorders of vagina (principal)
CPT/HCPCS: 0352U; 87491; 87591

== ENCOUNTER 2024-05-31 13:06 | Outpatient (AMB) | payer MEDICAID, SELFPAY ==
--- NOTE | 2024-05-31 13:08 | A.OFFVIS_ITS ---
Vital Signs 05/31/24 13:09 Height 5 ft 6 in Weight 181 lb BMI 29.2 BP 106/60 Blood Pressure Location Rt brachial Position Sitting Pulse 72 Pulse Source Pulse Oximeter Pulse Oximetry (%) 96 Oxygen Delivery Method Room Air Intake Visit Reasons: Asthma College Scouting Coordinator Required: No Paving Supervisor: Paving Supervisor offered & declined Accompanied by: Self / Same As Patient Allergies trees, grass Allergy (Severe, Uncoded 05/31/24 13:13) Difficulty Breathing pets Allergy (Unknown, Uncoded 05/31/24 13:13) rash Medication List - Last Reconciled 05/31/24 by Darline Crook LPN albuterol sulfate 90 mcg/actuation (Ventolin HFA) 2 puffs inhalation Q4-6H PRN albuterol sulfate 2.5 mg inhalation Q4-6H PRN budesonide-formoterol 160-4.5 mcg/actuation (Symbicort) 2 puffs inhalation Q12H cetirizine (Zyrtec) 10 mg PO DAILY PRN dupilumab (Dupixent) 600 mg (4 mL) subcut ONCE dupilumab (Dupixent) 300 mg (2 mL) subcut Q2W montelukast 10 mg PO DAILY HPI HPI Asthma: Details: Danii is a pleasant 28 year old female, never smoker, with underlying asthma since childhood, eczema and dermatographism. She has been lost to follow up last seen in March 2023. She reports suboptimal control on Symbicort, Singulair, Zyrtec, despite Dupixent. She continues to use albuterol MDI multiple times per day with moderate relief of dyspnea, chest tightness and wheezing. She also denies any improvements in skin. However she has not required prednisone or had any ED evaluations/hospitalizations since the last visit. Prior RAST which revealed multiple environmental allergens as well as IgE of 3172 and elevated eosinophils. PFT also revealed moderate obstructive with reversibility postbronchodilation and significant response to bronchodilators. We had previously discussed evaluation with an financial recording clerk and she is agreeable today. [facility] Social History Patient Tobacco Use Status: Never used Tobacco Review of Systems Const Denies chills, Denies excessive sweating, Denies fever(s), Denies headache(s) and Denies night sweats Eyes Reports itchy eyes ENT Reports Normal hearing present, Denies headache(s), Denies nasal congestion, Denies nasal discharge and Denies sore throat Card Denies chest pain, Denies chest pain at rest, Denies chest pain with activity, Denies claudication, Denies leg edema, Reports dyspnea on exertion and Denies orthopnea Resp Denies change in phlegm color, Denies chest congestion, Reports cough, Denies hemoptysis, Denies excessive phlegm production, Denies pain on inspiration, Denies pain with cough, Reports dyspnea on exertion, Denies stridor and Reports wheezing Musc Denies myalgias Neuro Reports Normal hearing present and Denies headache(s) Endo Denies excessive sweating Basilio/Lymph Denies lymphadenopathy Aller/Immun Reports itchy eyes, Reports seasonal rhinorrhea and Reports wheezing Physical Exam Vital Signs: Last Vital Signs Pulse 72 05/31/24 13:09 BP 106/60 05/31/24 13:09 Pulse Ox 96 05/31/24 13:09 Oxygen Delivery Method Room Air 05/31/24 13:09 BMI result Body Mass Index 29.2 Const General: cooperative, healthy appearing, comfortable, no acute distress, well developed and alert Orientation/consciousness: patient oriented x3 Limitations: no limitations HEENT Head: Yes normal to inspection, Yes normocephalic and Yes atraumatic Ears: hearing grossly normal bilaterally and external ears normal Eyes General: appearance normal, both eyes and all related structures Eyelids: Yes eyelids normal Sclerae: sclerae normal EOM: EOMs intact bilaterally Neck Neck: Yes normal visual inspection and Yes no lymphadenopathy Lymphatic: no lymphadenopathy noted Chest Chest palpation & inspection: normal inspection of the chest Resp Other: diminished aeration throughout lungs, moderately improved with DuoNeb Effort & Inspection: normal respiratory effort, able to speak in complete sentences, no audible wheezes, no cough, no stridor, not tachypneic, no tripod positioning and no use of accessory muscles Auscultation: diminished lung sounds Cardio Jugular venous distension: no JVD Rate: regular rate Rhythm: regular rhythm Skin Other: warm, dry, eczema on BUE Neuro General: patient oriented x3 Cranial nerves: Yes Normal hearing present Cognition (Neuro): normal cognition Gait exam (Neuro): Normal gait present Extrem General: Yes normal to inspection, Yes capillary refill normal, Yes no clubbing, cyanosis or edema and Yes no pedal edema Psych Appearance: grossly normal and well kempt Speech and movement: Normal speech and movement present and Clear speech present Affect: normal affect Attitude: cooperative Thought process: Normal thought process present Thought content: Normal thought content present Insight: Good insight present (Psych) Judgement: Good judgement present (Psych) Office Procedures Nebulizer Treatment Nebulizer Treatment 57179-Xectmzqul/MDI RX initial, or Nebulizer Subsequent Treatment Office Meds ipratropium 0.5 mg-albuterol 3 mg (2.5 mg base)/3 mL nebulization soln Performing Provider: Charity Boston NP Performing Location: [facility] Administered by: Darline Crook LPN on 05/31/24 13:46 Dose Route Admin Location Dispensed Lot Number Expiration Date [facility] Hydrate Thickener Operator 3 mL inhalation 3 mL [id number] 11/05/25 17706-310-92 [employer] Assessment & Plan Assessment & Plan (1) Asthma: Code(s): J45.909 - Unspecified asthma, uncomplicated Category: Medical Qualifiers: Asthma complication type: unspecified Asthma persistence: persistent Asthma severity: severe Qualified Code(s): J45.50 - Severe persistent asthma, uncomplicated (2) Environmental allergies: Code(s): Z91.09 - Other allergy status, other than to drugs and biological substances Category: Medical Plan At this time, she has failed Dupixent and will attempt Xolair given +RAST and severe asthma. Will also send to allergy for evaluation. In the mean time, will switch Symbicort to Trelegy and advised to continue Singulair, albuterol MDI/neb and antihistamines. All questions were answered and patient is in agreement of plan. Will follow up in 6-8 weeks or sooner if needed. Orders: Orders AMB Nebulizer Treatment Today J45.50 - Severe persistent asthma, uncomplicated Referrals Allergy & Immunology Referral L30.9 - Dermatitis, unspecified, Z91.09 - Other allergy status, other than to drugs and biological substances Medications: New axbowrtxsxu-gzgohxuys-wmlmcgsa 200-62.5-25 mcg (Trelegy Ellipta) 1 inh inhalation DAILY 60 ea 3RF Coding Level of Care Code Est Pt Level 4 (96643) Diagnoses Severe persistent asthma, unspecified whether complicated J45.50 Asthma complication type: unspecified Asthma persistence: persistent Asthma severity: severe Environmental allergies Z91.09 CPT Codes Nebulizer Treatment - Nebulizer Treatment, initial or subsequent: 35659- Nebulizer/MDI RX initial, or Nebulizer Subsequent Treatment ([id number])
[2024-05-31 13:09] VITALS: BP 106/60; PULSE 72; O2SAT 96; BMI 29.2
--- OUTSIDE RECORDS SUMMARY | 2024-05-31 15:34 | XMS_ITS | Encounter Summary ---
Author Organization [employer] Address [address] [place] [address] Care Team Providers Care Inclusion Special Education Teacher Name Role Phone Becca Teran DO Primary Care Provider + [phone] Reason for Visit * Reason Comments Med Refill Encounter Details Date Type Department Care Team ([facility] st Contact Info) Description 05/15/2024 Refill [facility] [address], [place] [phone] Becca Teran DO [address] [place] [address] Social History Tobacco Use Types Packs/Day Years Used Date Smoking Tobacco: Never Passive Smoke Exposure: Never Smokeless Tobacco: Never Alcohol Use Standard Drinks/Week Comments Not Currently 0 (1 standard drink = 0.6 oz pur e alcohol) Depression Answer Date Recorded Patient Health Questionnaire-9 Score 0 05/22/2022 Housing Stability Answer Date Recorded What is your housing situation today? I have gin pace 12/28/[address] you li ve. Do you have problems with any of the following? None of the above 12/28/2022 Food Insecurity Answer Date Recorded Within the past 12 months, y ou worried that your food would run out before you got money to buy more: Never True 12/28/2022 Within the past 12 months,th e food you bought just didn't last and you didn't have enough money to get more: Never True Transportation Answer Date Recorded In the past 12 months, has l ack of transportation kept you from medical appts, meetings, work or from getting things needed for daily living? No 12/28/2022 Utilities Answer Date Recorded In the past 12 months, has t he electric, gas, oil or water company threatened to shut off services in your home? No 12/28/2022 Depression Answer Date Recorded Patient Health Questionnaire-2 Score 0 05/22/2022 Comments Unknown Sex and Gender Information Value Date Recorded Sex Assigned at Female 01/05/2022 10:17 AM EDT Legal Sex Female 10:17 AM EDT Gender Identity Female 01/05/2022 10:17 AM EDT Sexual Orientation Straight 01/05/2022 10 :17 AM EDT documented as of this encounter Plan of Treatment Upcoming Encounters Date Type Department Care Team (Late st Contact Info) Description 07/26/2024 10:00 AM EDT Office Visit [facility] [address] [place] [address] Becca Teran DO [address] [place] [address] documented as of this encounter Visit Diagnoses Not on filedocumented in this encounter Additional Health Concerns Assessment Noted Time PHQ-9 Depression Total Score: 0 05/23/19 23 1:20 PM EDT documented as of this encounter Care Teams Inclusion Special Education Teacher Relationship Specialty Start Date End Date Becca Teran DO [address] [place] [address] PCP - General Family Medicine 11/15/12 documented as of this encounter
--- OUTSIDE RECORDS SUMMARY | 2024-05-31 15:34 | XMS_ITS | Encounter Summary ---
Author Organization [employer] Address [address] [facility] 7 [place] [address] Care Team Providers Care Mobile Lounge Driver Or Operator Name Role Phone Becca Teran DO Primary Care Provider + [phone] Reason for Visit * Reason Comments Med Refill Encounter Details Date Type Department Care Team ([facility] st Contact Info) Description 08/16/2023 Refill [facility] MEDICINE 230 [place], [place] [phone] Bceca Teran DO 230 [place], [place] [phone] Mild persistent asthma without complication Social History Tobacco Use Types Packs/Day Years [...] Description 07/26/2024 10:00 AM EDT Office Visit [facility] MEDICINE 230 [place] [address] Becca Teran DO 230 [place] [address] documented as of this encounter Visit Diagnoses Diagnosis Mild persistent asthma without complication documented in this encounter Additional Health Concerns Assessment Noted Time PHQ-9 Depression Total Score: 0 05/23/19 23 1:20 PM EDT documented as of this encounter Care Teams Mobile Lounge Driver Or Operator Relationship Specialty Start Date End Date Becca Teran DO 230 [place] [address] PCP - General Family Medicine 11/15/12 documented as of this encounter
--- OUTSIDE RECORDS SUMMARY | 2024-05-31 15:34 | XMS_ITS | Encounter Summary ---
Author Organization [employer] Address [address] [place] [address] Care Team Providers Care Line Assembler Aircraft Name Role Phone Becca Teran DO Primary Care Provider [phone] Reason for Visit * Reason Onset Date Comments Appointment Request 10/07/2022 Encounter Details Date Type Department Care Team (Late st Contact Info) Description 10/07/2022 Telephone [facility] MEDICINE 230 [place], [place] [phone] Becca Teran DO 230 [place], [place] [phone] Appointment Request Social History Tobacco Use Types Packs/Day Years Used Date Smoking Tobacco: Never Passive Smoke Exposure: Never Smokeless Tobacco: Never Alcohol Use Standard Drinks/Week Comments Never 0 (1 standard drink = 0.6 oz pur e alcohol) Depression Answer Date Recorded Patient Health Questionnaire-9 Score 0 05/22/2022 Depression Answer Date Recorded Patient Health Questionnaire-2 Score 0 05/22/2022 Comments Unknown Sex and Gender Information Value Date Recorded Sex Assigned at Female 01/05/2022 10:17 AM EDT Legal Sex Female 10:17 AM EDT Gender Identity Female 01/05/2022 10:17 AM EDT Sexual Orientation Straight 01/05/2022 10 :17 AM EDT documented as of this encounter Miscellaneous Notes * Telephone Encounter - Osvaldo Duenas - 10/07/2022 10:04 AM EDT Tc from pt requesting to r/s aptp for Pap Smear on 09/14/2022. Photoengraving Printer tried r/s but no available appt's found. Please contact pt at [phone] documented in this encounter Plan of Treatment Upcoming Encounters Date Type Department Care Team (Late st Contact Info) Description 07/26/2024 10:00 AM EDT Office Visit [facility] MEDICINE 230 [place] [address] Becca Teran DO 230 [place] [address] documented as of this encounter Visit Diagnoses Not on filedocumented in this encounter Additional Health Concerns Assessment Noted Time PHQ-9 Depression Total Score: 0 05/23/19 23 1:20 PM EDT documented as of this encounter Care Teams Line Assembler Aircraft Relationship Specialty Start Date End Date Becca Teran DO 230 [place] [address] PCP - General Family Medicine 11/15/12 documented as of this encounter
--- OUTSIDE RECORDS SUMMARY | 2024-05-31 15:34 | XMS_ITS | Encounter Summary ---
Author Organization [employer] Address [address] [place] [address] Care Team Providers Care Medical Laboratory Technician Name Role Phone Becca Teran DO Primary Care Provider [phone] Encounter Details Date Type Department Care Team (Late st Contact Info) Description 02/18/2022 [facility] [address] [place] [address] Becca Teran DO [address] [place] [address] Social History Tobacco Use Types Packs/Day Years Used Date Smoking Tobacco: Never Assessed Comments Unknown Sex and Gender Information Value [...] Description 07/26/2024 10:00 AM EDT Office Visit [facility] MEDICINE 230 [place] [address] Becca Teran DO 230 [place] [address] documented as of this encounter Visit Diagnoses Not on filedocumented in this encounter Care Teams Medical Laboratory Technician Relationship Specialty Start Date End Date Becca Teran DO 230 [place] [address] PCP - General Family Medicine 11/15/12 documented as of this encounter
--- OUTSIDE RECORDS SUMMARY | 2024-05-31 15:34 | XMS_ITS | Encounter Summary ---
Author Organization [employer] Address [address] [place] [address] 7 [place] [address] Care Team Providers Care English Lecturer Name Role Phone Becca Teran DO Primary Care Provider [phone] Reason for Visit * Reason Onset Date Comments call back 05/01/2022 Encounter Details Date Type Department Care Team (Late st Contact Info) Description 05/01/2022 Telephone [facility] MEDICINE 230 [place], [place] [phone] Becca Teran DO [address] [place] [address] call back Social History Tobacco Use Types Packs/Day Years Used Date Smoking Tobacco: Never Assessed Comments Unknown Sex and Gender Information Value Date Recorded Sex Assigned at Female 01/05/2022 10:17 AM EDT Legal Sex Female 10:17 AM EDT Gender Identity Female 01/05/2022 10:17 AM EDT Sexual Orientation Straight 01/05/2022 10 :17 AM EDT COVID-19 Exposure Response Date Recorded In the last 10 days, have yo u been in contact with someone who was confirmed or suspected to have Coronavirus/COVID-19? No / Unsure 05/01/2022 3:09 PM EST documented as of this encounter Miscellaneous Notes * Telephone Encounter - Vy Faulkner RN - 05/01/2022 10:39 AM EST TC placed to pt., pt. Agrees to appt. Today at 3pm in vaccine clinic for flu shot * Telephone Encounter - Justo Robin - 05/01/2022 10:15 AM EST Tc from pt returning call. Pt requesting a call back. documented in this encounter Plan of Treatment Upcoming Encounters Date Type Department Care Team (Late st Contact Info) Description 07/26/2024 10:00 AM EDT Office Visit [facility] MEDICINE [address] [place] [address] Becca Teran DO 230 [place] [address] documented as of this encounter Visit Diagnoses Not on filedocumented in this encounter Care Teams English Lecturer Relationship Specialty Start Date End Date Becca Teran DO 230 [place] [address] PCP - General Family Medicine 11/15/12 documented as of this encounter
--- OUTSIDE RECORDS SUMMARY | 2024-05-31 15:34 | XMS_ITS | Encounter Summary ---
Author Organization [employer] Address 75 [facility] 7t [place] [address] Care Team Providers Care Pacs Administrator Name Role Phone Becca Teran DO Primary Care Provider + [phone] Encounter Details Date Type Department Care Team ([facility] st Contact Info) Description 12/29/2023 Orders Only [facility] MED & PEDS [address] [place], [place] [phone] Rufus Zayas MD [address] [place] [address] Bacterial vaginosis Social History Tobacco Use Types Packs/Day Years [...] Description 07/26/2024 10:00 AM EDT Office Visit [facility] MEDICINE 230 [place] [address] Becca Teran DO 230 [place] [address] documented as of this encounter Visit Diagnoses Diagnosis Bacterial vaginosis Unspecified vaginitis and vulvovaginitis documented in this encounter Additional Health Concerns Assessment Noted Time PHQ-9 Depression Total Score: 0 05/23/19 23 1:20 PM EDT documented as of this encounter Care Teams Pacs Administrator Relationship Specialty Start Date End Date Becca Teran DO 230 [place] [address] PCP - General Family Medicine 11/15/12 documented as of this encounter
--- OUTSIDE RECORDS SUMMARY | 2024-05-31 15:34 | XMS_ITS | Encounter Summary ---
Author Organization [employer] Address [address] [place] [address] Care Team Providers Care Supervisor Malt House Name Role Phone Becca Teran DO Primary Care Provider [phone] Encounter Details Date Type Department Care Team (Late st Contact Info) Description 05/04/2022 Orders Only [address] [address] Becca Teran DO [address] [place] [address] [phone] Tuberculosis screening (Primary Dx) Social History Tobacco Use Types Packs/Day Years [...] PM EST documented as of this encounter Plan of Treatment Upcoming Encounters Date Type Department Care Team (Late st Contact Info) Description 07/26/2024 10:00 AM EDT Office Visit [facility] MEDICINE [address] [place] [phone] Becca Teran DO [address] [place] [phone] documented as of this encounter Procedures Procedure Name Priority Date/Time Associated Diagnosis Comments T-SPOT(R).TB Routine 05/05/2022 3:01 PM EST Tuberculosis screening MEASLES, MUMPS, AND RUBELLA (MMR) AB (IGG) PANEL, IMMUNE STATUS Routine 05/05/2022 3:01 PM EST Tuberculosis screening HEPATITIS B SURFACE ANTIBODY, QUALITATIVE Routine 05/05/2022 3:01 PM EST Tuberculosis screening VARICELLA ZOSTER ANTIBODY, IGG Routine 05/05/2022 3:01 PM EST Tuberculosis screening documented in this encounter Results * T-SPOT??.TB (05/05/2022 3:01 PM EST) T-Spot. TB Negative Negative [facility] [place] [facility] Comment: A negative test result does not exclude the possibility of exposure to or infection with Mycobacterium tuberculosis (M. tuberculosis). Patients with recent exposure to TB infected individuals exhibiting a negative T-SPOT.TB result should be considered for retesting within 6 weeks or if other relevant clinical symptoms indicate. Results from T-SPOT.TB testing must be used in conjunction with each individual's epidemiological history, current medical status, and results of other diagnostic evaluations. ? The T-SPOT.TB test is qualitative and results are reported as positive, borderline, or negative, given that the test controls perform as expected. In line with the Centers for Disease Control and Prevention's 2010 recommendation to report quantitative measurements alongside the qualitative result, the laboratory provides spot counts for informational purposes only. The T-SPOT.TB test should not be interpreted as a quantitative test. Panel A Spot Count Corrected For Neg Control 1 [facility] [place] Panel B Spot Count Corrected For Neg Control 0 [facility] [place] [facility] Negative Control Passed [facility] [place] Positive Control Passed [facility] [place] Comment: For additional information, please refer to http://education.YouEarnedIt.SL Pathology [employer] [place]/faq/ZWU369 (This link is being provided for informational/ educational purposes only.) ? 05/05/2022 3:01 PM EST 05/05/2022 3:01 PM EST Narrative [facility] - 05/07/2022 8:54 PM EST FASTING:NO FASTING: NO Becca Teran DO LAB BLOOD ORDERABLES Final R esult Performing Organization Address City/[facility]/ZIP Co de Phone Number [facility] [address] [place] [address], [facility] [place] [address] [email or web address] [address] [place] [address] * Hepatitis B Surface Antibody, Qualitative (05/05/2022 3:01 PM EST) Hepatitis B Surface Antibody QL NON-REACT ROSENDO NON-REACT ROSENDO [email or web address] [place] LXSN Blood Venous blood specimen / Unknown 05/05/2022 3:01 PM EST 05/05/2022 3:01 PM EST Narrative [facility] - 05/07/2022 8:54 PM EST FASTING:NO FASTING: NO Becca Teran DO LAB BLOOD ORDERABLES Final R [facility] Performing Organization Address [facility] Co de Phone Number [address], [facility] [place] [address] [email or web address] [place] [employer] [address] [place] [address], (Nl2) [place] [address] * Varicella zoster antibody, IgG (05/05/2022 3:01 PM EST) Varicella Zoster Virus Antibody IgG 452.30 index [email or web address] [place] [facility] Comment: ? Index ? Interpretation ? --------- ?<135.00 ?Negative - Antibody not detected ?135.00 - 164.99 ?Equivocal ?> or = 165.00 ?Positive - Antibody detected ?A positive result indicates that the patient ?has antibody to VZV but does not differentiate ?between an active or past infection. ?The clinical diagnosis must be interpreted in ?conjunction with the clinical signs and symptoms of ?the patient. This assay reliably measures immunity ?due to previous infection but may not be ?sensitive enough to detect antibodies induced by ?vaccination. Thus, a negative result in a vaccinated ?individual does not necessarily indicate ?susceptibility to VZV infection. A more sensitive ?test for vaccination-induced immunity is Varicella ?Zoster Virus Antibody Immunity Screen, ACIF. Blood Venous blood specimen / Unknown 05/05/2022 3:01 PM EST 05/05/2022 3:01 PM EST Narrative [facility] - 05/07/2022 8:54 PM EST FASTING:NO FASTING: NO us Becca Teran DO LAB BLOOD ORDERABLES Final R esult [employer] [address] [facility], [place] [address] [email or web address] [place] LXSN [address] [facility], (Nl2) [place] [address] * Measles, Mumps, and Rubella (MMR) Antibodies??(IgG) Panel, Immune Status (05/05/2022 3:01 PM EST) Pathologist [facility] Measles Ab IgG, Immune Status 34.60 AU/mL [email or web address] [place] LXSN Comment: AU/mL ?Interpretation ----- ? <13.50 ? Not consistent with immunity 13.50-16.49 ?Equivocal >16.49 ? Consistent with immunity The presence of measles IgG suggests immunization or past or current infection with measles virus. For additional information, please refer to http://education.DataArt/faq/WFJ785 (This link is being provided for informational/ educational purposes only.) Mumps Virus Ab IgG, Immune Status 124.00 AU/mL [employer] Comment: AU/mL ? Interpretation ------- ? <9.00 ? Not consistent with immunity 9.00-10.99 ?Equivocal >10.99 ?Consistent with immunity The presence of mumps IgG antibody suggests immunization or past or current infection with mumps virus. Rubella Virus Ab IgG, Immune Status 1.78 Index [employer] Comment: ?Index ?Interpretation ?----- ?<0.90 ?Not consistent with immunity ?0.90-0.99 ?Equivocal ?> or = 1.00 ?Consistent with immunity The presence of rubella IgG antibody suggests immunization or past or current infection with rubella virus. 05/05/2022 3:01 PM EST 05/05/2022 3:01 PM EST Narrative [facility] - 05/07/2022 8:54 PM EST FASTING:NO FASTING: NO us Becca Teran DO LAB BLOOD ORDERABLES Final R esult [facility] [address] [facility], [place] [address] [email or web address] [place] LXSN [address] [facility], (Nl2) [place] [address] documented in this encounter Visit Diagnoses Diagnosis Tuberculosis screening- Primary Screening examination for pulmonary tuberculosis documented in this encounter Care Teams Supervisor Malt House Relationship Specialty Start Date End Date Becca Teran DO [address] [place] [address] PCP - General Family Medicine 11/15/12 documented as of this encounter
--- OUTSIDE RECORDS SUMMARY | 2024-05-31 15:34 | XMS_ITS | Encounter Summary ---
Author Organization [employer] Address 75 [facility] 7 [place] [address] Care Team Providers Care Supervisor Adult Education Name Role Phone Becca Teran DO Primary Care Provider + [phone] Reason for Visit * Reason Onset Date Comments Med Refill 05/15/2024 Encounter Details Date Type Department Care Team (Late st Contact Info) Description 05/15/2024 Refill [facility] MEDICINE 230 [place], [place] [phone] Becca Teran DO 230 [place], [place] [phone] Eczema, unspecified type Social History Tobacco Use Types Packs/Day Years [...] as of this encounter Miscellaneous Notes * Addendum Note - Flor Barriga RN - 05/15/2024 10:42 AM EDTAddended by: FLOR BARRIGA on: 05/15/2024 10:42 AM Modules accepted: Orders * Telephone Encounter - Мария Garces - 05/15/2024 10:26 AM EDT Pt walked in requesting refill on hydrocortisone, triamcinolone 0.1%, and another eczema cream thatpt forgot the name too. documented in this encounter Plan of Treatment Upcoming Encounters Date Type Department Care Team (Late st Contact Info) Description 07/26/2024 10:00 AM EDT Office Visit [facility] MEDICINE 230 [place] [address] Becca Teran DO [address] [place] [address] documented as of this encounter Visit Diagnoses Diagnosis Eczema, unspecified type documented in this encounter Additional Health Concerns Assessment Noted Time PHQ-9 Depression Total Score: 0 05/23/19 23 1:20 PM EDT documented as of this encounter Care Teams Supervisor Adult Education Relationship Specialty Start Date End Date Becca Teran DO 230 [place] [address] PCP - General Family Medicine 11/15/12 documented as of this encounter
--- OUTSIDE RECORDS SUMMARY | 2024-05-31 15:34 | XMS_ITS | Encounter Summary ---
Author Organization [employer] Address 75 [facility] 7 [place] [address] Care Team Providers Care Box Stamper Name Role Phone Becca Teran DO Primary Care Provider + [phone] Encounter Details Date Type Department Care Team (Late st Contact Info) Description 07/21/2023 Orders Only [facility] MEDICINE [address] [place], [place] [phone] Caroline Latham MD [address] [place], [place] [phone] Bacterial vaginosis (Primary Dx) Social History Tobacco Use Types [...] Description 07/26/2024 10:00 AM EDT Office Visit [facility] MEDICINE [address] [place] [address] Becca Teran DO 230 [place] [address] documented as of this encounter Visit Diagnoses Diagnosis Bacterial vaginosis- Primary Unspecified vaginitis and vulvovaginitis documented in this encounter Additional Health Concerns Assessment Noted Time PHQ-9 Depression Total Score: 0 05/23/19 23 1:20 PM EDT documented as of this encounter Care Teams Box Stamper Relationship Specialty Start Date End Date Becca Teran DO 230 [place] [address] PCP - General Family Medicine 11/15/12 documented as of this encounter
--- OUTSIDE RECORDS SUMMARY | 2024-05-31 15:34 | XMS_ITS | Encounter Summary ---
Author Organization [employer] Address 75 [facility] 7t [place] [address] Care Team Providers Care Speech Language Pathologist Travel Name Role Phone Becca Teran DO Primary Care Provider [phone] Encounter Details Date Type Department Care Team (Latest Contact Info) Description 05/15/2024 Travel Social History Tobacco Use Types Packs/Day Years Used Date Smoking Tobacco: Never Passive Smoke Exposure: Never Smokeless Tobacco: Never Alcohol Use Standard Drinks/Week Comments Not Currently 0 (1 standard drink = 0.6 oz pur e alcohol) Depression Answer Date Recorded Patient Health Questionnaire-9 Score 0 05/22/2022 Housing Stability Answer Date Recorded What is your housing situation today? I have gin katelynn 12/28/[address] you li [...] Description 07/26/2024 10:00 AM EDT Office Visit [facility] MEDICINE [address] [place] [address] Becca Teran DO 230 [place] [address] documented as of this encounter Visit Diagnoses Not on filedocumented in this encounter Additional Health Concerns Assessment Noted Time PHQ-9 Depression Total Score: 0 05/23/19 23 1:20 PM EDT documented as of this encounter Care Teams Speech Language Pathologist Travel Relationship Specialty Start Date End Date Becca Teran DO 230 [place] [address] PCP - General Family Medicine 11/15/12 documented as of this encounter
--- OUTSIDE RECORDS SUMMARY | 2024-05-31 15:34 | XMS_ITS | Encounter Summary ---
Author Organization [employer] Address [address] [place] [address] [place] [address] Care Team Providers Care Assistant Teacher Primary Name Role Phone Becca Teran DO Primary Care Provider [phone] Reason for Visit * Reason Onset Date Comments Med Refill 06/12/2022 Encounter Details Date Type Department Care Team (Late st Contact Info) Description 06/12/2022 Refill [facility] MEDICINE 230 [place], [place] [phone] Becca Teran DO 230 [place] [address] Mild persistent asthma without complication Social History [...] suspected to have Coronavirus/COVID-19? No / Unsure 06/15/2022 11:52 AM EDT documented as of this encounter Miscellaneous Notes * Telephone Encounter - Isela Rosales - 06/12/2022 2:04 PM EDT TC from pt requesting med refill for medications Valacyclovir 1 gram albuterol 108 (90 Base) MCG/ACT inhaler documented in this encounter Plan of Treatment Upcoming Encounters Date Type Department Care Team (Late st Contact Info) Description 07/26/2024 10:00 AM EDT Office Visit [facility] MEDICINE [address] [place] [address] Becca Teran DO [address] [place] [address] documented as of this encounter Visit Diagnoses Diagnosis Mild persistent asthma without complication documented in this encounter Additional Health Concerns Assessment Noted Time PHQ-9 Depression Total Score: 0 05/23/19 23 1:20 PM EDT documented as of this encounter Care Teams Assistant Teacher Primary Relationship Specialty Start Date End Date Becca Teran DO 230 [place] [address] PCP - General Family Medicine 11/15/12 documented as of this encounter
--- OUTSIDE RECORDS SUMMARY | 2024-05-31 15:34 | XMS_ITS | Encounter Summary ---
Author Organization [employer] Address 75 [facility] 7t [place] [address] Care Team Providers Care Corrections Counselor Name Role Phone Becca Teran DO Primary Care Provider + [phone] Encounter Details Date Type Department Care Team ([facility] st Contact Info) Description 05/19/2024 Population Health Risk Score [facility] ([facility]) Department [address] [id number] Provider, Population Health Generic Social History Tobacco Use Types Packs/Day Years [...] Description 07/26/2024 10:00 AM EDT Office [address] [facility] MEDICINE 230 [place] [address] Becca Teran DO 230 [place] [address] documented as of this encounter Visit Diagnoses Not on filedocumented in this encounter Additional Health Concerns Assessment Noted Time PHQ-9 Depression Total Score: 0 05/23/19 23 1:20 PM EDT documented as of this encounter Care Teams Corrections Counselor Relationship Specialty Start Date End Date Becca Teran DO 230 [place] [address] PCP - General Family Medicine 11/15/12 documented as of this encounter
--- OUTSIDE RECORDS SUMMARY | 2024-05-31 15:34 | XMS_ITS | Encounter Summary ---
Author Organization [employer] Address 75 [facility] 7 [place] [address] Care Team Providers Care Senior Project Coordinator Name Role Phone Becca Teran DO Primary Care Provider + [phone] Reason for Visit * Reason Comments Med Refill Encounter Details Date Type Department Care Team ([facility] st Contact Info) Description 02/01/2023 Refill [facility] MEDICINE [address] [place], [place] [phone] Becca Teran DO 230 [place] [address] Social History Tobacco Use Types Packs/Day Years [...] 07/26/2024 10:00 AM EDT Office Visit [facility] MEDICINE [address] [place] [address] Becca Teran DO 230 [place] [address] documented as of this encounter Visit Diagnoses Not on filedocumented in this encounter Additional Health Concerns Assessment Noted Time PHQ-9 Depression Total Score: 0 05/23/19 23 1:20 PM EDT documented as of this encounter Care Teams Senior Project Coordinator Relationship Specialty Start Date End Date Becca Teran DO 230 [place] [address] PCP - General Family Medicine 11/15/12 documented as of this encounter
--- OUTSIDE RECORDS SUMMARY | 2024-05-31 15:34 | XMS_ITS | Encounter Summary ---
Author Organization [employer] Address [address] [place] [address] 7 [place] [address] Care Team Providers Care Provider Network Analyst Name Role Phone Becca Teran DO Primary Care Provider + [phone] Encounter Details Date Type Department Care Team (Late Contact Info) Description 04/13/2022 Orders Only [facility] MEDICINE [address] [place] [phone] Vane Brian LPN Social History Tobacco Use Types Packs/Day Years [...] suspected to have Coronavirus/COVID-19? No / Unsure 04/15/2022 12:52 PM EST documented as of this encounter Plan of Treatment Upcoming Encounters Date Type Department Care Team (Late Contact Info) Description 07/26/2024 10:00 AM EDT Office Visit [facility] MEDICINE [address] [place] [phone] Becca Teran DO [address] [place] [address] documented as of this encounter Visit Diagnoses Not on filedocumented in this encounter Care Teams Provider Network Analyst Relationship Specialty Start Date End Date Becca Teran DO [address] [place] [address] PCP - General Family Medicine 11/15/12 documented as of this encounter
--- OUTSIDE RECORDS SUMMARY | 2024-05-31 15:34 | XMS_ITS | Clinical Summary ---
Author Organization [employer] Address [address] [facility] 7 [place] [address] Care Team Providers Care Avionics Manager Name Role Phone Becca Teran DO Primary Care Provider [phone] Allergies No known active allergies Medications HPV 9-valent (Gardasil 9) 0.5 mL suspension vaccine Bring to office for injection 021 Active valACYclovir (Valtrex) 1 g tablet TAKE 2 TABLETS BY MOUTH EVERY 12 HOURS FOR 1 DAY NEEDED COLD SORE 4 tablet 2 023 Active valACYclovir (Valtrex) 500 MG tablet TAKE 1 TABLET BY MOUTH EVERY DAY 30 tablet 2 023 Active senna (Senokot) 8.6 MG tablet Take 2 tablets (17.2 mg) by mouth if needed at bedtime for constipation. 60 tablet 5 023 Active hydrocortisone 2.5 % creamIndication s:Eczema, unspecified type APPLY TO THE AFFECTED AREA(S) ON FACE EVERY DAY FOR ITCHING AND RASH / ECZEMA 30 g 2 023 Active triamcinolone (Nasacort Allergy 24HR) 55 MCG/ACT nasal inhalerIndicati ons:Chronic allergic rhinitis Administer 2 sprays into each nostril in the morning. 48 g 3 023 Active Misc. Devices (Pulse Oximeter For Finger) miscIndications :Moderate persistent asthma with (acute) exacerbation Use as directed, if 92% or less after nebulizer treatment, go to ED 1 each 023 Active budesonide-form oterol (Symbicort) 160-4.5 MCG/ACT inhaler Inhale 2 puffs in the morning and at bedtime. Rinse mouth with water after use to reduce aftertaste and incidence of candidiasis. Do not swallow. 1 each 11 023 Active cetirizine (ZyrTEC) 10 MG tablet Take 1 tablet (10 mg) by mouth in the morning. 90 tablet 3 023 Active Diclofenac Sodium 1 % gel Apply 2 g topically if needed in the morning, at noon, in the evening, and at bedtime (pain). 150 g 3 023 Active triamcinolone (Kenalog) 0.1 % cream mix with 1 lb of CeraVe cream and apply topically from neck down twice a day 80 g 3 023 Active Emollient (CeraVe Moisturizing) creamIndication s:Eczema, unspecified type mix with 80 gram of TAC cream and apply topically from neck down twice a day 453 g 3 023 Active azithromycin (Zithromax) 250 MG tabletIndicatio ns:Acute cough 500 mg on day 1, 250 mg daily x the next 4 days 6 tablet 024 Active clotrimazole (Lotrimin) 1 % vaginal creamIndication s:Vulvovaginal Candidiasis Insert one applicator per vagina at bedtime for 7 nights 45 g 024 Active metroNIDAZOLE (Metrogel) 0.75 % vaginal gelIndications: Bacterial vaginosis INSERT 1 APPLICATORFUL VAGINALLY EVERY DAY AT BEDTIME FOR 5 DAYS 140 g 024 Active metroNIDAZOLE (Metrogel) 0.75 % vaginal gelIndications: Bacterial vaginosis INSERT 1 APPLICATORFUL VAGINALLY EVERY DAY AT BEDTIME FOR 5 DAYS 70 g 024 Active albuterol (Ventolin HFA) 108 (90 Base) MCG/ACT inhalerIndicati ons:Mild persistent asthma without complication INHALE 2 PUFFS BY MOUTH EVERY 4 HOURS NEEDED FOR WHEEZING OR SHORTNESS OF BREATH 18 g 2 024 Active baclofen (Lioresal) 10 MG tablet TAKE 1 TABLET BY MOUTH THREE TIMES DAILY IN THE MORNING, AT NOON, AND AT BEDTIME NEEDED FOR MUSCLE SPASMS 60 tablet 1 024 Active naproxen (Naprosyn) 500 MG tablet TAKE 1 TABLET BY MOUTH TWICE DAILY IN THE MORNING AND AT BEDTIME FOR MILD PAIN 40 tablet 1 024 Active montelukast (Singulair) 10 MG tabletIndicatio ns:Moderate persistent asthma with (acute) exacerbation TAKE 1 TABLET BY MOUTH EVERY DAY IN THE MORNING 90 tablet 1 025 Active albuterol (2.5 MG/3ML) 0.083% nebulizer solution INHALE 1 AMPULE USING A NEBULIZER EVERY 4 HOURS NEEDED FOR WHEEZING OR SHORTNESS OF BREATH 90 mL 2 025 Active hydrocortisone (Proctosol HC) 2.5 % rectal cream Insert into the rectum if needed in the morning and at bedtime for hemorrhoids. 28 g 2 025 Active triamcinolone (Kenalog) 0.1 % ointmentIndicat ions:Eczema, unspecified type APPLY TO THE AFFECTED AREA(S) TWICE DAILY IN THE MORNING AND AT BEDTIME NEEDED RASH. DO NOT USE ON FACE, BETWEEN LEGS, ARMPITS 80 g 025 Active fluocinolone ([place]-Smoothe) 0.01 % external oil APPLY TO THE AFFECTED AREA(S) TWICE DAILY NEEDED FOR ECZEMA. AVOID FACE, BETWEEN LEGS, AND AXILLA 118 mL 1 025 Active fluocinolone ([place]-Smoothe) 0.01 % external oil APPLY TO THE AFFECTED AREA(S) TWICE DAILY NEEDED FOR ECZEMA. AVOID FACE, BETWEEN LEGS, AND AXILLA. 023 2024 Discontinued(R eorder (will not trigger notification to Pharmacy)) hydrocortisone (Proctosol HC) 2.5 % rectal cream Insert into the rectum if needed in the morning and at bedtime for hemorrhoids. 28 g 2 023 2024 Discontinued(R eorder (will not trigger notification to Pharmacy)) triamcinolone (Kenalog) 0.1 % ointmentIndicat ions:Eczema, unspecified type APPLY TO THE AFFECTED AREA(S) TWICE DAILY IN THE MORNING AND AT BEDTIME NEEDED RASH. DO NOT USE ON FACE, BETWEEN LEGS, ARMPITS 80 g 023 2024 Discontinued(R eorder (will not trigger notification to Pharmacy)) albuterol (2.5 MG/3ML) 0.083% nebulizer solution INHALE 1 AMPULE USING A NEBULIZER EVERY 4 HOURS NEEDED FOR WHEEZING OR SHORTNESS OF BREATH 90 mL 2 024 2024 Discontinued Active Problems Problem Noted Date Diagnosed Date Urinary frequency 09/23/2023 Bacterial vaginosis 08/06/2023 Vaginal discharge 08/06/2023 Assessment & Plan (09/23/2023 3:05 PM EDT): Patient will be contacted with results She may use now medication that she has at home Sore throat and laryngitis 06/14/2023 Assessment & Plan (06/14/2023 5:19 PM EDT): Most likely residual from recent URI. Advised to increase water intake, throat lozenges several times per day and do gargles with warm water and salt. Take tylenol prn pain. Fu swab results and CT/NG pharyngeal swab. 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 -Advise to avoid shaving or waxing. -Warm compresses -Doxycycline 100 mg BID for 7 d (advised to avoid sun exposure) -Alarm signs and Sx discussed. Encounters Date Type Department Care Team Description 05/19/2024 Population Health Risk Score Community Care [facility] (C[facility]) Department [address] [place] [address] Provider, Population Health Generic 05/15/2024 Refill [facility] MEDICINE [address] [place] [address] Becca Teran DO 05/15/2024 Travel 05/15/2024 Refill [facility] MEDICINE [address] [place] [address] Jurcsak, Becca, DO Eczema, unspecified type 03/19/2024 Refill [facility] MEDICINE [address] [place] [address] Becca Teran, DO Moderate persistent asthma with (acute) exacerbation from Last 3 Months Immunizations Name Administration Dates Next Due HPV 9-Valent 01/09/2021,09/30/2018 Hep B, adult 11/20/2022,05/22/2022 Influenza injectable quadrivalent preservative f ree 05/01/2022,01/19/2018 Influenza, IIV3, injectable 04/09/2014 Pfizer Covid-19 Vaccine 12+ 04/15/2022, Pfizer Covid-19 Vaccine 12+ Bivalent 06/15/2022 Tdap 09/28/2014 Family History Medical History Relation Name Comments Allergies Father Bipolar disorder Maternal Grandmother Stroke Maternal Grandmother Atrial fibrillation Mother Throat cancer Mother Relation Name Status Comments Father Maternal Grandmother Mother Social History Tobacco Use Types Packs/Day Years Used Date Smoking Tobacco: Never Passive Smoke Exposure: Never Smokeless Tobacco: Never Tobacco Cessation:Counseling Given: Not Answered Alcohol Use Standard Drinks/Week Comments Not Currently [...] Orientation Straight 01/05/2022 10 :17 AM EDT Last Filed Vital Signs Vital Sign Reading Time Taken Comments Blood Pressure 126/73 12/27/2023 5:57 PM EDT Pulse 87 12/27/2023 5:57 PM EDT Temperature 36 ??C (96.8 ??F) 12/27/2023 5:57 PM EDT Respiratory Rate 20 12/27/2023 5:57 PM EDT Oxygen Saturation 96% 12/27/2023 5:57 PM EDT Inhaled Oxygen Concentration - - Weight 79.7 kg (175 lb 9.6 oz) 12/27/2023 5:57 P M EDT Height 167.6 cm (5' 6 ) 12/27/2023 5:57 PM EDT Body Mass Index 28.34 12/27/2023 5:57 PM EDT Plan of Treatment Upcoming Encounters Date Type Department Care Team (Late st Contact Info) Description 07/26/2024 10:00 AM EDT Office Visit [facility] MEDICINE [address] [place] [address] [phone] Becca Teran DO [address] [place] [address] Health Maintenance Due Date Last Done Comments Alcohol/Substance Use Screening 2005 Family Planning (PISQ) 2008 Pneumococcal Vaccine: Pediatrics (0 to 5 Years) and At-Risk Patients (6 to 49) Years) (1 of 2 - PCV) 2012 HPV Vaccines (3 - 3-dose series) 04/03/2021 01/09/2021, 09/30/2018 Hepatitis B Vaccines (3 of 3 - 19+ 3-dose series) 01/15/2023 11/20/2022, 05/22/2022 Depression Screening 05/23/2023 05/22/2022, 05/22/2022 SDOH Screening 05/23/2023 05/22/2022 HPV/Cotest 06/05/2023 COVID-19 Vaccine (4 - 2023-2 5 season) 2023 06/15/2022, 04/15/2022, 03/25/2022 Influenza Vaccine (#1) 2023 , 01/19/2018, 04/09/2014 DTaP/Tdap/Td Vaccines (2 - T d or Tdap) 09/28/2024 09/28/2014 Tobacco Screening 12/26/2024 12/27/2023 Cervical Cancer Screening 11/20/2025 Pap Smear 11/20/2025 11/20/2022, 05/12/2021 Zoster Vaccines (1 of 2) 06/05/2043 RSV Patients and Patients Aged 60 years or older (1 - 1-dose 75+ series) 2068 HIV Screening Completed 05/27/2022, 11/17/2021 Hepatitis C Screening Completed 05/27/2022 , 11/17/2021 HIB Vaccines Aged Out No longer eligi ble based on patient's age to complete this topic Hepatitis A Vaccines Aged Out No long er eligible based on patient's age to complete this topic IPV Vaccines Aged Out No longer eligi ble based on patient's age to complete this topic Meningococcal Vaccine Aged Out No catarina brenden eligible based on patient's age to complete this topic RSV under 20 months Aged Out No longe r eligible based on patient's age to complete this topic Rotavirus Vaccines Aged Out No longer eligible based on patient's age to complete this topic Procedures Procedure Name Priority Date/Time Associated Diagnosis Comments PAP SMEAR Routine 11/20/2022 12:48 PM EDT HEPATITIS C AB W/RFL RNA, PCR W/RFL GENOTYPE,LIPA Routine 05/27/2022 2:00 PM EDT Encounter for routine adult health examination without abnormal findings HIV 1/2 ANTIGEN/ANTIBODY, FOURTH GENERATION W/RFL Routine 05/27/2022 2:00 PM EDT Encounter for routine adult health examination without abnormal findings from Last 3 Months or Most Recently Relevant to Health Maintenance Results * Pap Smear (11/20/2022 12:48 PM EDT) 11/20/2022 12:4 8 PM EDT 11/23/2022 9:30 AM EDT [facility] - 12/01/2022 2:00 PM EDT ----- ------- Name: Danii Souza ? Age/Sex: 27/F ? : 1995 Unit#: [id number] ?? Attend Dr: Becca Teran DO ?Re11/20/22 ?Status: DEP REF ? Location: [facility].HHCLNP ? Disch: ? ----- ------- SPEC : [id number] ?RECD: 11/23/22-929 ? STATUS: ??SOUT ? REQ NUM: [id number] ? CAROLYN: 11/20/22-1248 ? SUBM DR: Becca Teran DO ? ENTERED: ??11/23/22-4 ?SP TYPE: Pap Smr ?OTHR : ? ORDERED: ??Pap Smear ? Interpretation ?? Satisfactory for evaluation. ?? Negative for intraepithelial lesion or malignancy. ?Clinical Information LMP: Unknown date Previous PAP test: Unknown date/findings ? Material Received ?? ThinPrep-Cervical ----- ------- Signed (signature on file) Felicitas Arnold Raphael 12/01/22 1400 ? ----- ------- ? END OF REPORT ? us Becca Teran DO LAB CYTOLOGY ORDERABLES Bethany l Result [facility] [address] [place] [address] [phone] * Hepatitis C Antibody with Reflex to HCV RNA,PCR w/Reflex to Genotype, LiPA (05/27/2022 2:00 PM EDT) Hepatitis C Antibody NON-REACT ROSENDO NON-REACT ROSENDO [employer] [place] [facility] Index 0.05 <1.00 [facility] [place] [facility] Comment: HCV antibody was non-reactive. There is no laboratory evidence of HCV infection. In most cases, no further action is required. However, if recent HCV exposure is suspected, a test for HCV RNA (test code 53240) is suggested. For additional information, please refer to http://education.[employer]faq/HSX414 (This link is being provided for informational/ educational purposes only.) 05/27/2022 2:00 PM EDT 05/27/2022 2:01 PM EDT Narrative [facility] - 05/28/2022 2:31 PM EDT FASTING:NO FASTING: NO Becca Teran LAB BLOOD ORDERABLES Final R esult Performing Organization Address City/[facility]/ZIP Co de Phone Number [facility] [address], [place] [address] [employer] [place] [employer] [address] [place] [address] * HIV-1/2 Antigen and Antibodies, Fourth Generation, with Reflexes (05/27/2022 2:00 PM EDT) HIV Antigen/Antibody, 4th Generation NON-REAC TIVE NON-REAC TIVE [employer] [place] [facility] Comment: HIV-1 antigen and HIV-1/HIV-2 antibodies were not detected. There is no laboratory evidence of HIV infection. PLEASE NOTE: This information has been disclosed to you from records whose confidentiality may be protected by state law. ??If your state requires such protection, then the state law prohibits you from making any further disclosure of the information without the specific written consent of the person to whom it pertains, or as otherwise permitted by law. A general authorization for the release of medical or other information is NOT sufficient for this purpose. ?? For additional information please refer to http://education.[employer]/faq/BWC836 (This link is being provided for informational/ educational purposes only.) The performance of this assay has not been clinically validated in patients less than 2 years old. Blood Venous blood specimen / Unknown 05/27/2022 2:00 PM EDT 05/27/2022 2:01 PM EDT Narrative [facility] - 05/28/2022 2:31 PM EDT FASTING:NO FASTING: NO Becca Teran DO LAB BLOOD ORDERABLES Final R esult [facility] [address], [place] [address] [facility] [address] [place] [address] from Last 3 Months or Most Recently Relevant to Health Maintenance Insurance C3 Care Teams Avionics Manager Relationship Specialty Start Date End Date Becca Teran DO [address] [place] [address] PCP - General Family Medicine 11/15/12
== END 2024-05-31 13:43 | disposition home or self-care (01) ==
LOC: HO.HPSW 13:06
PROVIDERS: PCP Family Medicine; Visit Provider Nurse Practitioner Family
DX: J45.50 Severe persistent asthma, uncomplicated (principal); Z91.09 Other allergy status, other than to drugs and biological substances
CPT/HCPCS: 99214

== ENCOUNTER → 2024-05-31 13:06 | Outpatient (BNVA) | payer MEDICAID, SELFPAY | PROVIDERS: PCP Family Medicine; Visit Provider Nurse Practitioner Family | DX: J45.50 Severe persistent asthma, uncomplicated (principal); Z91.09 Other allergy status, other than to drugs and biological substances | CPT/HCPCS: 94640; 99212 ==

== ENCOUNTER 2024-07-05 17:54 | Outpatient (REF) | payer MEDICAID, SELFPAY ==
--- OUTSIDE RECORDS SUMMARY | 2024-07-05 17:55 | XMS_ITS | Encounter Summary ---
Author Organization [employer] Address [address] [place] [address] [place] [address] Care Team Providers Care Food Safety Specialist Name Role Phone Becca Teran DO Primary Care Provider [phone] Reason for Visit * Reason Onset Date Comments Med Refill 06/12/2022 Encounter Details Date Type Department Care Team (Late st Contact Info) Description 06/12/2022 Refill [facility] MEDICINE [address] [place], [place] [phone] Becca Teran DO [address] [place] [address] Mild persistent asthma without complication Social History [...] Description 07/26/2024 10:00 AM EDT Office Visit [facility] MEDICINE [address] [place] [address] Becca Teran DO [address] [place] [address] documented as of this encounter Visit Diagnoses Diagnosis Mild persistent asthma without complication documented in this encounter Additional Health Concerns Assessment Noted Time PHQ-9 Depression Total Score: 0 05/23/19 23 1:20 PM EDT documented as of this encounter Care Teams Food Safety Specialist Relationship Specialty Start Date End Date Becca Teran DO [address] [place] [address] PCP - General Family Medicine 11/15/12 documented as of this encounter
--- OUTSIDE RECORDS SUMMARY | 2024-07-05 17:55 | XMS_ITS | Encounter Summary ---
Author Organization [employer] Address [address] [place] [address] [address] [place] [address] Care Team Providers Care Crawler Dragline Operator Name Role Phone Becca Teran DO Primary Care Provider + [phone] Encounter Details Date Type Department Care Team (Late Contact Info) Description 04/13/2022 Orders Only [facility] MEDICINE [address] [place] [address] Vane Brian LPN Social History Tobacco Use [...] Description 07/26/2024 10:00 AM EDT Office Visit [facility] MEDICINE [address] [place] [address] Becca Teran DO [address] [place] [address] documented as of this encounter Visit Diagnoses Not on filedocumented in this encounter Care Teams Crawler Dragline Operator Relationship Specialty Start Date End Date Becca Teran DO [address] [place] [address] PCP - General Family Medicine 11/15/12 documented as of this encounter
--- OUTSIDE RECORDS SUMMARY | 2024-07-05 17:55 | XMS_ITS | Encounter Summary ---
Author Organization [employer] Address [address] [place] [address] 7 [place] [address] Care Team Providers Care Surveyor Rod Helper Name Role Phone Becca Teran DO Primary Care Provider [phone] Reason for Visit * Reason Onset Date Comments call back 05/01/2022 Encounter Details Date Type Department Care Team (Late st Contact Info) Description 05/01/2022 Telephone [facility] MEDICINE [address] [place], [place] [phone] Becca Teran DO [address] [place] [address] call back Social History Tobacco Use Types [...] Description 07/26/2024 10:00 AM EDT Office Visit [facility] MEDICINE [address] [place] [address] Becca Teran DO [address] [place] [address] documented as of this encounter Visit Diagnoses Not on filedocumented in this encounter Care Teams Surveyor Rod Helper Relationship Specialty Start Date End Date Becca Teran DO [address] [place] [address] PCP - General Family Medicine 11/15/12 documented as of this encounter
--- OUTSIDE RECORDS SUMMARY | 2024-07-05 17:55 | XMS_ITS | Encounter Summary ---
Author Organization [employer] Address [address] [facility] 7 [place] [address] Care Team Providers Care Certified Medical Asst Name Role Phone Becca Teran DO Primary Care Provider + [phone] Encounter Details Date Type Department Care Team (Late st Contact Info) Description 07/21/2023 Orders Only [facility] MEDICINE [address] [place], [place] [phone] Caroline Latham MD [address] [place], [place] [phone] Bacterial vaginosis (Primary Dx) Social History Tobacco [...] Description 07/26/2024 10:00 AM EDT Office Visit [facility] MEDICINE [address] [place] [address] Becca Teran DO [address] [place] [address] documented as of this encounter Visit Diagnoses Diagnosis Bacterial vaginosis- Primary Unspecified vaginitis and vulvovaginitis documented in this encounter Additional Health Concerns Assessment Noted Time PHQ-9 Depression Total Score: 0 05/23/19 23 1:20 PM EDT documented as of this encounter Care Teams Certified Medical Asst Relationship Specialty Start Date End Date Becca Teran DO [address] [place] [address] PCP - General Family Medicine 11/15/12 documented as of this encounter
--- OUTSIDE RECORDS SUMMARY | 2024-07-05 17:55 | XMS_ITS | Encounter Summary ---
Author Organization [employer] Address [address] [facility] 7 [place] [address] Care Team Providers Care Hosiery Looper Name Role Phone Becca Teran DO Primary Care Provider + [phone] Reason for Visit * Reason Comments Med Refill Encounter Details Date Type Department Care Team ([facility] st Contact Info) Description 02/01/2023 Refill [facility] MEDICINE [address] [place], [place] [phone] Becca Teran DO [address] [place] [address] Social History Tobacco Use Types Packs/Day Years [...] Description 07/26/2024 10:00 AM EDT Office Visit [facility] MEDICINE [address] [place] [address] Becca Teran DO [address] [place] [address] documented as of this encounter Visit Diagnoses Not on filedocumented in this encounter Additional Health Concerns Assessment Noted Time PHQ-9 Depression Total Score: 0 05/23/19 23 1:20 PM EDT documented as of this encounter Care Teams Hosiery Looper Relationship Specialty Start Date End Date Becca Teran DO [address] [place] [address] PCP - General Family Medicine 11/15/12 documented as of this encounter
--- OUTSIDE RECORDS SUMMARY | 2024-07-05 17:55 | XMS_ITS | Encounter Summary ---
Author Organization [employer] Address [address] [place] [address] Care Team Providers Care Forensic Specialist Name Role Phone Becca Teran DO Primary Care Provider [phone] Encounter Details Date Type Department Care Team (Late st Contact Info) Description 02/18/2022 [facility] [employer] [address] [place] [address] Becca Teran DO [address] [place] [address] Social History Tobacco Use Types Packs/Day Years [...] Description 07/26/2024 10:00 AM EDT Office Visit [facility] MEDICINE [address] [place] [address] Becca Teran DO [address] [place] [address] documented as of this encounter Visit Diagnoses Not on filedocumented in this encounter Care Teams Forensic Specialist Relationship Specialty Start Date End Date Becca Teran DO [address] [place] [address] PCP - General Family Medicine 11/15/12 documented as of this encounter
--- OUTSIDE RECORDS SUMMARY | 2024-07-05 17:55 | XMS_ITS | Encounter Summary ---
Author Organization [employer] Address [address] [place] [address] Care Team Providers Care Golf Professional Name Role Phone Becca Teran DO Primary Care Provider [phone] Reason for Visit * Reason Onset Date Comments Appointment Request 10/07/2022 Encounter Details Date Type Department Care Team (Late st Contact Info) Description 10/07/2022 Telephone [facility] MEDICINE [address] [place], [place] [phone] Becca Teran DO [address] [place], [place] [phone] Appointment Request Social History Tobacco Use Types [...] r/s aptp for Pap Smear on 09/14/2022. Critical Care Unit Manager tried r/s but no available appt's found. Please contact pt at [phone] documented in this encounter Plan of Treatment Upcoming Encounters Date Type Department Care Team (Late st Contact Info) Description 07/26/2024 10:00 AM EDT Office Visit [facility] MEDICINE [address] [place] [address] Becca Teran DO [address] [place] [address] documented as of this encounter Visit Diagnoses Not on filedocumented in this encounter Additional Health Concerns Assessment Noted Time PHQ-9 Depression Total Score: 0 05/23/19 23 1:20 PM EDT documented as of this encounter Care Teams Golf Professional Relationship Specialty Start Date End Date Becca Teran DO [address] [place] [address] PCP - General Family Medicine 11/15/12 documented as of this encounter
--- OUTSIDE RECORDS SUMMARY | 2024-07-05 17:56 | XMS_ITS | Encounter Summary ---
Author Organization [employer] Address [address] [place] [address] Care Team Providers Care Top Executive Name Role Phone Becca Teran DO Primary Care Provider [phone] Encounter Details Date Type Department Care Team (Late st Contact Info) Description 05/04/2022 Orders Only [address] [address] Becca Teran DO [address] [place] [address] [phone] Tuberculosis screening (Primary Dx) Social History Tobacco [...] 07/26/2024 10:00 AM EDT Office Visit [facility] [address] [place] [address] [phone] Becca Teran DO [address] [place] [phone] documented as of this encounter Procedures Procedure [...] T-Spot. TB Negative Negative [facility] Comment: A negative test result [...] For Neg Control 1 [facility] Panel B Spot Count Corrected For Neg Control 0 [facility] Negative Control [facility]ed [facility] Positive Control Passed [facility] Comment: For additional information, please refer to http://education.Latinda.Quickcue/faq/WNO518 (This link is being provided for informational/ educational purposes only.) ? 05/05/2022 3:01 PM EST 05/05/2022 3:01 PM EST Narrative [facility] - 05/07/2022 8:54 PM EST FASTING:NO FASTING: NO Becca Teran DO LAB BLOOD ORDERABLES Final R esult Performing Organization Address City/[facility]/ZIP Co de Phone Number [facility] [address] [place] [address], [facility] [place] [address] [facility] [address] [facility] [place] [address] * Hepatitis B Surface Antibody, Qualitative (05/05/2022 3:01 PM EST) Hepatitis B Surface Antibody QL NON-REACT ROSENDO NON-REACT ROSENDO [facility] [place] [facility] Blood Venous blood specimen / Unknown 05/05/2022 3:01 PM EST 05/05/2022 3:01 PM EST Narrative [facility] - 05/07/2022 8:54 PM EST FASTING:NO FASTING: NO Becca Teran DO LAB BLOOD ORDERABLES Final R [facility] Performing Organization Address [facility] Co de Phone Number [address], [facility] [place] [address] [facility] [place] [facility] [address] [place] [address], (Nl2) [place] [address] * Varicella zoster antibody, IgG (05/05/2022 3:01 PM EST) Varicella Zoster Virus Antibody IgG 452.30 index [facility] [place] [facility] Comment: ? Index ? Interpretation ? [...] DO LAB BLOOD ORDERABLES Final R esult [employer] [address] [facility], [place] [address] [facility] [place] [facility] [address] [facility], (Nl2) [place] [address] * Measles, Mumps, and Rubella (MMR) Antibodies??(IgG) Panel, Immune Status (05/05/2022 3:01 PM EST) Pathologist [facility] Measles Ab IgG, Immune Status 34.60 AU/mL [facility] [place] [facility] Comment: AU/mL ?Interpretation ----- ? <13.50 ? Not consistent with immunity 13.50-16.49 ?Equivocal >16.49 ? Consistent with immunity The presence of measles IgG suggests immunization or past or current infection with measles virus. For additional information, please refer to http://education.Keen Impressions/faq/FDO176 (This link is being provided for informational/ educational purposes only.) Mumps Virus Ab IgG, Immune Status 124.00 AU/mL [facility] Comment: AU/mL ? Interpretation ------- ? <9.00 ? Not consistent with immunity 9.00-10.99 ?Equivocal >10.99 ?Consistent with immunity The presence of mumps IgG antibody suggests immunization or past or current infection with mumps virus. Rubella Virus Ab IgG, Immune Status 1.78 Index [facility] Comment: ?Index ?Interpretation ?----- ?<0.90 ?Not consistent [...] BLOOD ORDERABLES Final R esult [facility] [address] [facility], [facility], [place] [address] [facility] [place] [facility] [address] [facility], (Nl2) [place] [address] documented in this encounter Visit Diagnoses Diagnosis Tuberculosis screening- Primary Screening examination for pulmonary tuberculosis documented in this encounter Care Teams Top Executive Relationship Specialty Start Date End Date Becca Teran DO [address] [place] [phone] PCP - General Family Medicine 11/15/12 documented as of this encounter
--- OUTSIDE RECORDS SUMMARY | 2024-07-05 17:56 | XMS_ITS | Encounter Summary ---
Author Organization [employer] Address [address] [facility] 7t [place] [address] Care Team Providers Care Support Services Specialist Name Role Phone Becca Teran DO Primary Care Provider + [phone] Encounter Details Date Type Department Care Team ([facility] st Contact Info) Description 12/29/2023 Orders Only [facility] [address] [place], [place] [phone] Rufus Zayas MD [address] [place] [address] Bacterial vaginosis Social History Tobacco Use Types [...] Description 07/26/2024 10:00 AM EDT Office Visit [facility] [address] [place] [address] Becca Teran DO [address] [place] [address] documented as of this encounter Visit Diagnoses Diagnosis Bacterial vaginosis Unspecified vaginitis and vulvovaginitis documented in this encounter Additional Health Concerns Assessment Noted Time PHQ-9 Depression Total Score: 0 05/23/19 23 1:20 PM EDT documented as of this encounter Care Teams Support Services Specialist Relationship Specialty Start Date End Date Becca Teran DO [address] [place] [address] PCP - General Family Medicine 11/15/12 documented as of this encounter
--- OUTSIDE RECORDS SUMMARY | 2024-07-05 17:56 | XMS_ITS | Clinical Summary ---
Author Organization [employer] Address [address] [facility] 7t [place] [address] Care Team Providers Care Artificial Cherry Maker Name Role Phone Becca Teran DO Primary Care Provider Allergies No known active allergies Medications HPV [...] go to ED 1 each 023 Active cetirizine (ZyrTEC) 10 MG tablet [...] LEGS, ARMPITS 80 g 025 Active fluocinolone (Havelock-Smoothe) 0.01 % external oil APPLY TO THE AFFECTED AREA(S) TWICE DAILY NEEDED FOR ECZEMA. AVOID FACE, BETWEEN LEGS, AND AXILLA 118 mL 1 025 Active Symbicort 160-4.5 MCG/ACT inhaler INHALE 2 PUFFS BY MOUTH TWICE DAILY IN THE MORNING AND AT BEDTIME RINSE MOUTH AFTER USING. 10.2 g 11 025 Active metroNIDAZOLE (Flagyl) 500 MG tablet Take 1 tablet (500 mg) by mouth 2 times daily for 7 days. 14 tablet 025 2024 Active budesonide-form oterol (Symbicort) 160-4.5 MCG/ACT inhaler Inhale 2 puffs in the morning and at bedtime. Rinse mouth with water after use to reduce aftertaste and incidence of candidiasis. Do not swallow. 1 each 11 023 2024 Discontinued Active Problems Problem Noted Date [...] Encounters Date Type Department Care Team Description 07/05/2024 3:00 PM EDT Office Visit [facility] [address] [place] [address] Vaginal discharge 06/12/2024 Refill [facility] [address] [place] [address] Becca Teran DO 05/19/2024 Population Health Risk Score Community Care [facility] (C[facility]) Department [address] [place] [phone] Provider, Population Health Generic 05/15/2024 Refill [facility] [address] [place] [address] Becca Teran DO 05/15/2024 Travel 05/15/2024 Refill [facility] [address] [place] [address] Becca Teran DO Eczema, unspecified type from Last 3 Months Immunizations Name Administration [...] Sign Reading Time Taken Comments Blood Pressure 121/73 07/05/2024 3:02 PM EDT Pulse 89 07/05/2024 3:02 PM EDT Temperature 36.7 ??C (98.1 ??F) 07/05/2024 3:02 PM ED T Respiratory Rate 16 07/05/2024 3:02 PM EDT Oxygen Saturation 99% 07/05/2024 3:02 PM EDT Inhaled Oxygen Concentration - - Weight 79.8 kg (176 lb) 07/05/2024 3:02 PM EDT Height 167.6 cm (5' 6 ) 12/27/2023 5:57 PM EDT Body Mass Index 28.41 12/27/2023 5:57 PM EDT Plan of Treatment Upcoming Encounters Date Type Department Care Team (Late st Contact Info) Description 07/26/2024 10:00 AM EDT Office Visit [facility] [address] [place], [place] [phone] Becca Teran DO [address] [place], [place] [phone] Health Maintenance Due Date Last Done Comments [...] topic Meningococcal Vaccine Aged Out No catarina rbenden eligible based on patient's age to complete [...] 8 PM EDT 11/23/2022 9:30 AM EDT [facility] - 12/01/2022 2:00 PM EDT ----- ------- Name: Danii Souza ? Age/Sex: 27/F ? : 1995 Unit#: [id number] ?? Attend Dr: Becca Teran DO ?Re11/20/22 ?Status: DEP REF ? Location: HO.HHCLNP ? Disch: ? ----- ------- SPEC : [id number] ?RECD: 11/23/22 ? STATUS: ??SOUT ? REQ NUM: [id number] ? CAROLYN: 11/20/22-1248 ? SUBM DR: Becca Teran DO ? ENTERED: ??11/23/22-1214 ?SP TYPE: Pap Smr ?OTHR DR: ? ORDERED: ??Pap Smear ? Interpretation ?? Satisfactory for evaluation. ?? Negative for intraepithelial lesion or malignancy. ?Clinical Information LMP: Unknown date Previous PAP test: Unknown date/findings ? Material Received ?? ThinPrep-Cervical ----- ------- Signed (signature on file) Felicitas Arnold Raphael 12/01/22 1400 ? ----- ------- ? END OF REPORT ? us Becca Teran DO LAB CYTOLOGY ORDERABLES Bethany whitfield Result [facility] [address] [place] [phone] * Hepatitis C Antibody with Reflex to HCV RNA,PCR w/Reflex to Genotype, LiPA (05/27/2022 2:00 PM EDT) Hepatitis C Antibody NON-REACT ROSENDO NON-REACT ROSENDO [facility] Index 0.05 <1.00 [facility] Comment: HCV antibody was non-reactive. There is no laboratory evidence of HCV infection. In most cases, no further action is required. However, if recent HCV exposure is suspected, a test for HCV RNA (test code 35516) is suggested. For additional information, please refer to http://EZ LIFT [employer] Systems.SecurActive/faq/UYA920 (This link is being provided for informational/ educational purposes only.) 05/27/2022 2:00 PM EDT 05/27/2022 2:01 PM EDT Narrative [facility] - 05/28/2022 2:31 PM EDT FASTING:NO FASTING: NO us Becca Teran DO LAB BLOOD ORDERABLES Final R esult [facility] [address], [place] [address] [facility] [address] [place] [address] * HIV-1/2 Antigen and Antibodies, Fourth Generation, with Reflexes (05/27/2022 2:00 PM EDT) [facility] HIV Antigen/Antibody, 4th Generation NON-REAC TIVE NON-REAC TIVE [facility] Comment: HIV-1 antigen and HIV-1/HIV-2 antibodies were [...] ?? For additional information please refer to http://E[employer] L[employer] Systems.Jan Medical.Woven Inc/faq/MIT524 (This link is being provided for informational/ educational purposes only.) The performance of this assay has not been clinically validated in patients less than 2 years old. Blood Venous blood specimen / Unknown 05/27/2022 2:00 PM EDT 05/27/2022 2:01 PM EDT Narrative [facility] - 05/28/2022 2:31 PM EDT FASTING:NO FASTING: NO Becca Teran DO LAB BLOOD ORDERABLES Final R esult [facility] [address], [place] [address] [facility] [address] [place] [address] from Last 3 Months or Most Recently Relevant to Health Maintenance [place] [id number] C3 Care Teams Artificial Cherry Maker Relationship Specialty Start Date End Date Becca Teran DO [address] [place] [phone] PCP - General Family Medicine 11/15/12
--- OUTSIDE RECORDS SUMMARY | 2024-07-05 17:56 | XMS_ITS | Encounter Summary ---
Author Organization [employer] Address [address] [facility] 7 [place] [address] Care Team Providers Care Pr Internship Name Role Phone Becca Teran DO Primary Care Provider + [phone] Reason for Visit * Reason Comments Med Refill Encounter Details Date Type Department Care Team ([facility] st Contact Info) Description 08/16/2023 Refill [facility] [address] [place], [place] [phone] Becca Teran DO [address] [place], [place] [phone] Mild persistent asthma without complication Social History [...] Description 07/26/2024 10:00 AM EDT Office Visit [facility] [address] [place] [address] Becca Teran DO [address] [place] [address] documented as of this encounter Visit Diagnoses Diagnosis Mild persistent asthma without complication documented in this encounter Additional Health Concerns Assessment Noted Time PHQ-9 Depression Total Score: 0 05/23/19 23 1:20 PM EDT documented as of this encounter Care Teams Pr Internship Relationship Specialty Start Date End Date Becca Teran DO [address] [place] [address] PCP - General Family Medicine 11/15/12 documented as of this encounter
[2024-07-05 20:06] LABS: Bacterial Vaginosis PCR POSITIVE (Negative); Candida Group PCR NOT DETECTED (Not Detect); Candida glab krusei PCR NOT DETECTED (Not Detect); Trichomonas vaginalis PCR NOT DETECTED (Not Detect)
[2024-07-05 20:46] LABS: CT PCR NOT DETECTED (Not Detect.); NG PCR NOT DETECTED (Not Detect.)
== END 2024-07-05 17:55 | disposition home or self-care (01) ==
LOC: HO.HHCLNP 17:54
PROVIDERS: Visit Provider Internal Medicine
DX: N89.8 Other specified noninflammatory disorders of vagina (principal)
CPT/HCPCS: 81515; 87491; 87591

== ENCOUNTER 2024-08-30 17:59 | Outpatient (REF) | payer MEDICAID, SELFPAY ==
--- OUTSIDE RECORDS SUMMARY | 2024-08-30 18:57 | XMS_ITS | Encounter Summary ---
Author Organization [employer] Address [address] [place] [address] Care Team Providers Care Line Analyst Name Role Phone Becca Teran DO Primary Care Provider [phone] Encounter Details Date Type Department Care Team (Late st Contact Info) Description 02/18/2022 [facility] [address] [place], [place] [phone] Becca Teran DO [address] [place], [place] [phone] Social History Tobacco Use Types Packs/Day Years Used Date Smoking Tobacco: Never Assessed Comments Unknown Sex and Gender Information Value Date Recorded Sex Assigned at Female 01/05/2022 10:17 AM EDT Legal Sex Female 10:17 AM EDT Gender Identity Female 01/05/2022 10:17 AM EDT Sexual Orientation Straight 01/05/2022 10 :17 AM EDT documented as of this encounter Plan of Treatment Not on file documented as of this encounter Visit Diagnoses Not on filedocumented in this encounter Care Teams Line Analyst Relationship Specialty Start Date End Date Becca Teran DO [address] [place], [place] [phone] PCP - General Family Medicine 11/15/12 documented as of this encounter
[2024-08-30 20:25] LABS: Bacterial Vaginosis PCR NEGATIVE (Negative); Candida Group PCR NOT DETECTED (Not Detect); Candida glab krusei PCR NOT DETECTED (Not Detect); Trichomonas vaginalis PCR NOT DETECTED (Not Detect)
[2024-08-30 21:57] LABS: CT PCR NOT DETECTED (Not Detect.); NG PCR NOT DETECTED (Not Detect.)
== END 2024-08-30 18:00 | disposition home or self-care (01) ==
LOC: HO.HHCLNP 17:59
PROVIDERS: Visit Provider Emergency Medicine
DX: N76.0 Acute vaginitis (principal); B96.89 Other specified bacterial agents as the cause of diseases classified elsewhere
CPT/HCPCS: 81515; 87491; 87591

== ENCOUNTER 2024-09-05 13:51 | Outpatient (AMB) | payer MEDICAID, SELFPAY ==
[2024-09-05 13:43] VITALS: BP 98/54; PULSE 87; O2SAT 98; BMI 28.9
--- NOTE | 2024-09-05 13:43 | MHC.OFFVIS ---
Vital Signs 09/05/24 13:43 Height 5 ft 6 in Weight 179 lb BMI 28.9 BP 98/54 L Blood Pressure Location Rt brachial Position Sitting Pulse 87 Pulse Source Pulse Oximeter Pulse Oximetry (%) 98 Oxygen Delivery Method Room Air Intake Visit Reasons: Asthma Allergies trees, grass Allergy (Severe, Uncoded 09/05/24 13:45) Difficulty Breathing pets Allergy (Unknown, Uncoded 09/05/24 13:45) rash HPI HPI Asthma: Details: Danii is a pleasant 29 year old female, never smoker, with underlying asthma since childhood, eczema and dermatographism. At the last visit, she continued to report suboptimal control on Symbicort, Singulair, Zyrtec, despite Dupixent. She continued to use albuterol MDI multiple times per day with moderate relief of dyspnea, chest tightness and wheezing. Prior RAST which revealed multiple environmental allergens as well as IgE of 3172 and elevated eosinophils, referral placed to allergy which is scheduled for December. An order for Xolair was placed in addition to starting Breo and Incruse. She was unaware of the approval for Xolair and had never started however has had significant improvements in respriatory symptoms with Breo and Incruse. She did report an urgent care visit for bronchitis this spring needing prednisone as well as antibiotics with complete resolution of symptoms. Today she denies any respiratory symptoms. [facility] Social History Patient Tobacco Use Status: Never used Tobacco Review of Systems Const Denies chills, Denies excessive sweating, Denies fever(s), Denies headache(s) and Denies night sweats Eyes Denies dry eyes, Denies irritation and Denies itchy eyes ENT Reports Normal hearing present, Denies headache(s), Denies nasal congestion, Denies nasal discharge, Denies post nasal drip and Denies sore throat Card Denies chest pain, Denies chest pain at rest, Denies chest pain with activity, Denies claudication, Denies leg edema, Denies dyspnea, Denies dyspnea on exertion, Denies orthopnea and Denies paroxysmal nocturnal dyspnea Resp Denies chest congestion, Denies cough, Denies excessive phlegm production, Denies pain on inspiration, Denies pain with cough, Denies dyspnea, Denies dyspnea on exertion, Denies stridor and Denies wheezing Musc Denies myalgias Neuro Reports Normal hearing present and Denies headache(s) Endo Denies excessive sweating Basilio/Lymph Denies lymphadenopathy Aller/Immun Denies itchy eyes, Denies seasonal rhinorrhea and Denies wheezing Physical Exam Vital Signs: Last Vital Signs Pulse 87 09/05/24 13:43 BP 98/54 L 09/05/24 13:43 Pulse Ox 98 09/05/24 13:43 Oxygen Delivery Method Room Air 09/05/24 13:43 BMI result Body Mass Index 28.9 Const General: cooperative, healthy appearing, comfortable, no acute distress, well developed and alert Orientation/consciousness: patient oriented x3 Limitations: no limitations HEENT Head: Yes normal to inspection, Yes normocephalic and Yes atraumatic Ears: hearing grossly normal bilaterally and external ears normal Eyes General: appearance normal, both eyes and all related structures Eyelids: Yes eyelids normal Sclerae: sclerae normal EOM: EOMs intact bilaterally Neck Neck: Yes normal visual inspection and Yes no lymphadenopathy Lymphatic: no lymphadenopathy noted Chest Chest palpation & inspection: normal inspection of the chest Resp Effort & Inspection: normal respiratory effort, able to speak in complete sentences, no audible wheezes, no cough, no stridor, not tachypneic, no tripod positioning and no use of accessory muscles Auscultation: clear to auscultation bilaterally Cardio Jugular venous distension: no JVD Rate: regular rate Rhythm: regular rhythm Skin Other: warm, dry General skin exam: no rashes or lesions noted Neuro General: patient oriented x3 Cranial nerves: Yes Normal hearing present Cognition (Neuro): normal cognition Gait exam (Neuro): Normal gait present Extrem General: Yes normal to inspection, Yes capillary refill normal, Yes no clubbing, cyanosis or edema and Yes no pedal edema Psych Appearance: grossly normal and well kempt Speech and movement: Normal speech and movement present and Clear speech present Affect: normal affect Attitude: cooperative Thought process: Normal thought process present Thought content: Normal thought content present Insight: Good insight present (Psych) Judgement: Good judgement present (Psych) Assessment & Plan Assessment & Plan (1) Asthma: Code(s): J45.909 - Unspecified asthma, uncomplicated Category: Medical Qualifiers: Asthma complication type: unspecified Asthma persistence: persistent Asthma severity: severe Qualified Code(s): J45.50 - Severe persistent asthma, uncomplicated (2) Environmental allergies: Code(s): Z91.09 - Other allergy status, other than to drugs and biological substances Category: Medical Plan At this time, she reports excellent control of respiratory symptoms on Singulair, Breo and Incruse, rarely requiring albuterol MDI. Will hold off on Xolair since symptoms are controlled however if patient with worsening symptoms as the Fall approaches will reconsider. She is aware to call if symptoms change. All questions were answered and patient is in agreement of plan. Will follow up in 3 months or sooner if needed. Medications: New albuterol sulfate 90 mcg/actuation 2 inhalations inhalation Q6H PRN 1 ea 3RF shortness of breath or wheezing Coding Level of Care Code Est Pt Level 4 (86828) Diagnoses Severe persistent asthma, unspecified whether complicated J45.50 Asthma complication type: unspecified Asthma persistence: persistent Asthma severity: severe Environmental allergies Z91.09
--- OUTSIDE RECORDS SUMMARY | 2024-09-05 15:01 | XMS_ITS | Clinical Summary ---
Author Organization [address] [place] [address] Address [address] [place] [address] Phone Care Team Providers Care Banana Ripening Room Supervisor Name Role Phone Physician, Pcp Unknown Primary Care Provider Joy vailable Social History Tobacco Use Types Packs/Day Years Used Date Smoking Tobacco: Never Assessed Comments Unknown Sex and Gender Information Value Date Recorded Sex Assigned at Not on file Legal Sex Female 12:17 AM EST Gender Identity Not on file Sexual Orientation Not on file Plan of Treatment Health Maintenance Due Date Last Done Comments DTaP,Tdap,and Td Vaccines (1 - Tdap) 2012 Hepatitis B Vaccines (1 of 3 - 19+ 3-dose series) 2012 Cervical Cancer Screening: P ap Smear 2014 COVID-19 Vaccine ( - 2023-2 5 season) 2023 Depression Screening 09/01/2024 HIV Screening 09/01/2024 Hepatitis C Screening 09/01/2024 Social Influencers of Health Screening 09/01/2024 Influenza Vaccine (#1) 2024 HIB Vaccines Aged Out No longer eligi ble based on patient's age to complete this topic HPV Vaccines Aged Out No longer eligi ble based on patient's age to complete this topic Hepatitis A Vaccines Aged Out No long er eligible based on patient's age to complete this topic IPV Vaccines Aged Out No longer eligi ble based on patient's age to complete this topic MMR Vaccines Aged Out No longer eligi ble based on patient's age to complete this topic Meningococcal ACWY Vaccine Aged Out N o longer eligible based on patient's age to complete this topic Meningococcal B Vaccine Aged Out No l onger eligible based on patient's age to complete this topic Pneumococcal Vaccine: Pediat rics (0 to 5 Years) and At-Risk Patients (6 to 64 Years) Aged Out No longer eligible b ased on patient's age to complete this topic RSV Immunization Patients Un jeffrey 20 months Aged Out No longer eligible b ased on patient's age to complete this topic Varicella Vaccines Aged Out No longer eligible based on patient's age to complete this topic Insurance MEDICAID - [place] Care Teams Banana Ripening Room Supervisor Relationship Specialty Start Date End Date Physician, Pcp Unknown PCP - General 09/01/24
== END 2024-09-05 14:02 | disposition home or self-care (01) ==
PROVIDERS: PCP Family Medicine; Visit Provider Nurse Practitioner Family
DX: J45.50 Severe persistent asthma, uncomplicated (principal); Z91.09 Other allergy status, other than to drugs and biological substances
CPT/HCPCS: 99214

== ENCOUNTER → 2024-09-05 13:51 | Outpatient (BNVA) | payer MEDICAID, SELFPAY | PROVIDERS: PCP Family Medicine; Visit Provider Nurse Practitioner Family | DX: J45.50 Severe persistent asthma, uncomplicated (principal); Z91.09 Other allergy status, other than to drugs and biological substances | CPT/HCPCS: 99212 ==

== ENCOUNTER 2025-02-23 14:30 | Outpatient (REF) | payer MEDICAID, SELFPAY ==
--- OUTSIDE RECORDS SUMMARY | 2025-02-20 11:30 | XMS_ITS | Encounter Summary ---
Author Organization [employer] Address 75 [facility] 7 [place] [address] Care Team Providers Care Conservation Agent Name Role Phone Becca Teran DO Primary Care Provider + [phone] Encounter Details Date Type Department Care Team (Late st Contact Info) Description 02/20/2025 11:30 AM EST Office Visit [facility] MED[facility]INE [address] [place], [place] [phone] Becca Teran DO [address] [place], [place] [phone] Acute pain of left knee (Primary Dx); Encounter for immunization Social History Tobacco Use Types Packs/Day Years Used Date Smoking Tobacco: Never Passive Smoke Exposure: Never Smokeless Tobacco: Never Tobacco Cessation:Counseling Given: Not Answered Alcohol Use Standard Drinks/Week Comments Not Currently 0 (1 standard drink = 0.6 oz pur e alcohol) Depression Answer Date Recorded Patient Health Questionnaire-9 Score 6 02/20/2025 Patient Health Questionnaire-9 Score 6 02/20/2025 Last PHQ-9: Questionnaire Data Not on file 1 04/23/2024 Housing Stability Answer Date Recorded What is your housing situation today? I have gin pace 07/18/[address] you li ve. Do you have problems with any of the following? None of the above 07/18/2024 Food Insecurity Answer Date Recorded Within the past 12 months, y ou worried that your food would run out before you got money to buy more: Never True 07/18/2024 Within the past 12 months,th e food you bought just didn't last and you didn't have enough money to get more: Never True Transportation Answer Date Recorded In the past 12 months, has l ack of transportation kept you from medical appts, meetings, work or from getting things needed for daily living? No 07/18/2024 Utilities Answer Date Recorded In the past 12 months, has t he electric, gas, oil or water company threatened to shut off services in your home? No 07/18/2024 Depression Answer Date Recorded Patient Health Questionnaire-2 Score 2 02/20/2025 Internet Access Answer Date Recorded Internet Access Q1 Yes 07/18/2024 Internet Access Q2 Not on file 07/18/2024 Comments Unknown Sex and Gender Information Value Date Recorded Sex Assigned at Female 01/05/2022 10:17 AM EDT Legal Sex Female 10:17 AM EDT Gender Identity Female 01/05/2022 10:17 AM EDT Sexual Orientation Straight 01/05/2022 10 :17 AM EDT documented as of this encounter Last Filed Vital Signs Vital Sign Reading Time Taken Comments Blood Pressure 118/70 02/20/2025 12:08 PM EST Pulse 86 02/20/2025 12:08 PM EST Temperature 36.4 C (97.6 F) 02/20/2025 12:08 PM EST Respiratory Rate 16 02/20/2025 12:08 PM EST Oxygen Saturation 98% 02/20/2025 12:08 PM EST Inhaled Oxygen Concentration - - Weight 82.8 kg (182 lb 9.6 oz) 02/20/2025 12:08 PM EST Height 167.6 cm (5' 6 ) 02/20/2025 12:08 PM EST Body Mass Index 29.47 02/20/2025 12:08 PM EST documented in this encounter Functional Status * Over the past 2 weeks, how often have you been bothered by any of the following problems? Question Answer Date of Assessment Author Patient Health Questionnaire -2 Score 2 02/20/2025 12:10 PM EST Verito Robin MA * Little interest or pleasure in doing things Answer Date of Assessment Author Several days 02/20/2025 12:10 PM EST Verito Robin MA * Feeling down, depressed, or hopeless Answer Date of Assessment Author Several days 02/20/2025 12:10 PM EST Verito Robin MA * Trouble falling or staying asleep, or sleeping too much Answer Date of Assessment Author More than half the days 02/20/2025 12:10 PM Verito Carrizales MA * Feeling tired or having little energy Answer Date of Assessment Author Several days 02/20/2025 12:10 PM Verito Carrizales MA * Poor appetite or overeating Answer Date of Assessment Author Not at all 02/20/2025 12:10 PM Verito Carrizales MA * Feeling bad about yourself - or that you are a failure or have let yourself or your family down Answer Date of Assessment Author Several days 02/20/2025 12:10 PM Verito Carrizales MA * Trouble concentrating on things, such as reading the newspaper or watching television Answer Date of Assessment Author Not at all 02/20/2025 12:10 PM Verito Carrizales MA * Moving or speaking so slowly that other people could have noticed? Or the opposite - being so fidgety or restless that you have been moving around a lot more than usual. Answer Date of Assessment Author Not at all 02/20/2025 12:10 PM Verito Carrizales MA * Thoughts that you would be better off or hurting yourself in some way Answer Date of Assessment Author Not at all 02/20/2025 12:10 PM Verito Carrizales MA * Patient Health Questionnaire-9 Score Answer Date of Assessment Author 6 02/20/2025 12:10 PM Verito Carrizales MA * Over the last 2 weeks, how often have you been bothered by any of the following problems? Question Answer Date of Assessment Author Feeling nervous, anxious, or on edge 1 02/20/2025 12:10 PM Verito Carrizales MA Not being able to stop or co ntrol worrying 1 02/20/2025 12:10 PM Verito Carrizales MA Worrying too much about diff erent things 0 02/20/2025 12:10 PM Verito Carrizales MA Trouble relaxing 1 02/20/2025 12:10 PM Verito Carrizales MA Being so restless that it is hard to sit still 0 02/20/2025 12:10 PM EST Verito Robin MA Becoming easily annoyed or irritable 0 02/20/2025 12:10 PM EST Verito Robin MA Feeling afraid as if somethi ng awful might happen 0 02/20/2025 12:10 PM Verito Carrizales MA YEFRI-7 Total Score 3 02/20/2025 12:10 PM EST Verito Robin MA * How difficult have these problems made it for you to do your work, take care of things at home, or get along with other people? Answer Date of Assessment Author Somewhat difficult 02/20/2025 12:10 PM Verito Howard MA documented as of this encounter Plan of Treatment Not on file documented as of this encounter Procedures Procedure Name Priority Date/Time Associated Diagnosis Comments XR KNEE 3 VIEWS LEFT Routine 02/23/2025 2:50 PM EST Acute pain of left knee documented in this encounter Results * XR Knee 3 Views Left (02/23/2025 2:50 PM EST) Anatomical Region Laterality Modality Lower Extremities, Knee Left [facility] 02/23/2025 2:50 PM EST Narrative 02/23/2025 3:04 PM EST [facility] [address] [place] [address] XRay Report Signed Patient: Danii Souza MR#: [id number] 49 : 1995 Acct:[id number] Age/Sex: 29 / F ADM Date: 02/23/25 Loc: HO.HHCX Attending Dr: Becca Teran DO Ordering Physician: Becca Teran DO Date of Service: 02/23/25 Procedure(s): XR knee LT 3V Accession Number(s): [id number] cc: Becca Teran DO Reason for Exam: worsening knee cracking with pain and swelling EXAMINATION: XR KNEE, LEFT CLINICAL INFORMATION: worsening knee cracking with pain and swelling COMPARISON: None available. TECHNIQUE: AP lateral and sunrise views of the left knee. FINDINGS: No acute fracture or dislocation. No lytic or blastic lesions. No gross suprapatellar bursa joint effusion. No metallic or radiopaque foreign body. No subcutaneous emphysema. XR/XR knee LT 3V IMPRESSION: No acute fracture or dislocation. Negative x-ray. Electronically signed by: Gregory Lino MD 02/23/2025 03:01 PM EST RP Dictated By: Gregory Hansen MD Signed By: <Electronically signed by Gregory Lutz MD in OV> 02/23/25 1501 DD/ 1450 TD/TT: 02/23/25 1458 Gameplay Programmer: Procedure Note Donotuseinterpreter, Image - 02/23/2025 [place] [address] XRay Report Signed Patient: Danii SouzaMR#: [id number] 49 : 1995Acct:[id number] Age/Sex: FADM Date: 02/23/25 Loc: HO.HHCX Attending Dr: Becca Teran DO Ordering Physician: Becca Teran DO Date of Service: 02/23/25 Procedure(s): XR knee LT 3V Accession Number(s): [id number] cc: Becca Teran DO Reason for Exam: worsening knee cracking with pain and swelling EXAMINATION: XR KNEE, LEFT CLINICAL INFORMATION: worsening knee cracking with pain and swelling COMPARISON: None available. TECHNIQUE: AP lateral and sunrise views of the left knee. FINDINGS: No acute fracture or dislocation. No lytic or blastic lesions. No gross suprapatellar bursa joint effusion. No metallic or radiopaque foreign body. No subcutaneous emphysema. XR/XR knee LT 3V IMPRESSION: No acute fracture or dislocation. Negative x-ray. Electronically signed by: Gregory Lino MD 02/23/2025 03:01 PM EST RP Dictated By: Gregory Hansen MD Signed By: <Electronically signed by Gregory Lutz MDin OV> 02/23/25 1501 DD/ 1450 TD/TT: 02/23/25 1458 Gameplay Programmer: Becca Teran DO IMG XR PROCEDURES Final Resu lt documented in this encounter Visit Diagnoses Diagnosis Acute pain of left knee- Primary Encounter for immunization documented in this encounter Additional Health Concerns Assessment Noted Time PHQ-9 Depression Total Score: 6 02/21/20 25 12:10 PM EST documented as of this encounter Care Teams Conservation Agent Relationship Specialty Start Date End Date Becca Teran DO [address] [place] [address] PCP - General Family Medicine 11/15/12 documented as of this encounter
--- NOTE | ~2025-02-23 | XR_ITS ---
EXAMINATION: XR KNEE, LEFT CLINICAL INFORMATION: worsening knee cracking with pain and swelling COMPARISON: None available. TECHNIQUE: AP lateral and sunrise views of the left knee. FINDINGS: No acute fracture or dislocation. No lytic or blastic lesions. No gross suprapatellar bursa joint effusion. No metallic or radiopaque foreign body. No subcutaneous emphysema. XR/XR knee LT 3V IMPRESSION: No acute fracture or dislocation. Negative x-ray. Electronically signed by: Gregory Lino MD 02/23/2025 03:01 PM ROBERTA SEGUNDO
--- OUTSIDE RECORDS SUMMARY | 2025-02-23 13:40 | XMS_ITS | Encounter Summary ---
Author Organization [employer] Address 75 [facility] [address] [place] [address] Care Team Providers Care Sports Lawyer Name Role Phone Becca Teran Primary Care Provider + [phone] Reason for Visit * Reason Comments Vaginal Discharge Encounter Details Date Type Department Care Team ([facility] st Contact Info) Description 02/23/2025 1:40 PM EST Office Visit [facility] [address] [place] [address] Vaginal discharge Social History Tobacco Use Types Packs/Day Years [...] Sign Reading Time Taken Comments Blood Pressure 110/64 02/23/2025 1:59 PM EST Pulse 84 02/23/2025 1:59 PM EST Temperature 36.7 C (98.1 F) 02/23/2025 1:59 PM EST Respiratory Rate 16 02/23/2025 1:59 PM EST Oxygen Saturation 98% 02/23/2025 1:59 PM EST Inhaled Oxygen Concentration - - Weight 81.6 kg (180 lb) 02/23/2025 1:59 PM EST Height - - Body Mass Index 29.05 02/20/2025 12:08 PM EST documented in this encounter Plan of Treatment Scheduled Orders Name Type Priority Associated Diagnoses Orde r Schedule Bacterial Vaginosis Microbiology Routine Vaginal discharge Ordered: 02/23/2025 Chlamydia/N. Gonorrhoeae RNA, TMA, Urogenitial Microbiology Routine Vaginal discharge Ordered: 02/23/2025 documented as of this encounter Visit Diagnoses Diagnosis Vaginal discharge Leukorrhea, not specified as infective documented in this encounter Additional Health Concerns Assessment Noted Time PHQ-9 Depression Total Score: 6 02/21/20 25 12:10 PM EST documented as of this encounter Care Teams Sports Lawyer Relationship Specialty Start Date End Date Becca Teran DO [address] [place] [address] PCP - General Family Medicine 11/15/12 documented as of this encounter
--- OUTSIDE RECORDS SUMMARY | 2025-02-23 15:57 | XMS_ITS | Encounter Summary ---
Author Organization [employer] Address 75 [facility] 7 [place] [address] Care Team Providers Care Flower Stripper Name Role Phone Becca Teran DO Primary Care Provider + [phone] Reason for Visit * Reason Onset Date Comments Nurse Triage 02/19/2025 Encounter Details Date Type Department Care Team (Late st Contact Info) Description 02/19/2025 Telephone [facility] MEDICINE [address] [place], [place] [phone] Becca Teran DO [address] [place], [place] [phone] Nurse Triage Social History Tobacco Use Types Packs/Day Years [...] encounter Miscellaneous Notes * Telephone Encounter - Carolina Ramirez RN - 02/19/2025 12:10 PM EST T/C to pt who c/o intermittent 7/10 pain to her left knee especially when she is standing for a long time. Pt reports she has heard a cracking noise in her left knee for years. States that for the past few weeks the noise has been louder and sounds like a scraping/grinding noise. Pt denies skin changes, redness, edema. Pt c/o difficulty falling and staying asleep. Reports she is awoken easily. Pt states unable to determine if she awakens sob because of chronic asthma. Reports that she was been advised that she snores loudly.. Pt requesting testing for sleep apnea. Agrees to appointment with pcp 02/20/25 to address concerns. Protocols Used (2): Insomnia (Adult), Knee Pain (Adult) Disposition for Call: See in Office or Video Visit within 3 Days Protocol Used: Insomnia (Adult) Protocol-Based Disposition: See in Office or Video Visit within 3 Days Video visit offer not recorded Positive Triage Questions: * Patient wants to be seen * Loud snoring is a chronic symptom (recurrent or ongoing AND present > 4 weeks) * Difficulty falling to sleep or staying asleep * All higher-acuity triage questions were negative. Protocol Used: Knee Pain (Adult) Protocol-Based Disposition: See in Office or Video Visit within 3 Days Video visit offer not recorded Positive Triage Questions: * Moderate pain (e.g., symptoms interfere with work or school, limping) and present > 3 days * Patient wants to be seen * All higher-acuity triage questions were negative. Care Advice Discussed: * Reasons To Call Back - Signs of infection occur (spreading redness, warmth, fever) - You become worse * Telephone Encounter - Sina Ryan - 02/19/2025 11:00 AM EST Symptoms: Sleeping Difficulty, Knee Pain - Not From Injury Outcome: Schedule an appointment to be seen within 24 hours Reason: Caller denied all higher acuity questions Please contact pt at [phone]. documented in this encounter Plan of Treatment Not on file documented as of this encounter Visit Diagnoses Not on filedocumented in this encounter Additional Health Concerns Assessment Noted Time PHQ-9 Depression Total Score: 0 07/27/19 25 10:21 AM EDT documented as of this encounter Care Teams Flower Stripper Relationship Specialty Start Date End Date Becca Teran DO [address] [place] [address] PCP - General Family Medicine 11/15/12 documented as of this encounter
--- OUTSIDE RECORDS SUMMARY | 2025-02-23 15:57 | XMS_ITS | Encounter Summary ---
Author Organization [facility] Address [address] [facility] 7 [place] [address] Care Team Providers Care Cloth Finishing Range Operator Chief Name Role Phone Becca Teran DO Primary Care Provider David Almonte RN Unavailable [phone] William Edgar Unavailable Encounter Details Date Type Department Care Team (Late st Contact Info) Description 05/04/2022 Orders Only [facility] MEDICINE [address] [place] [address] Becca Teran DO [address] [place] [address] Tuberculosis screening (Primary Dx) Social History Tobacco [...] Results * T-SPOT??.TB (05/05/2022 3:01 PM EST) Pathologist [facility] T-Spot. TB Negative Negative [facility] [place] Comment: A negative test result [...] status, and results of other diagnostic evaluations. The T-SPOT.TB test is qualitative and results [...] For Neg Control 1 [facility] [place] Panel B Spot Count Corrected For Neg Control 0 [facility] [place] Negative Control [facility]ed [facility] [place] Positive Control Passed [facility] [place] Comment: For additional information, please refer to http://education.[employer]/faq/VAV224 (This link is being provided for informational/ educational purposes only.) 05/05/2022 3:01 PM EST 05/05/2022 3:01 PM EST Narrative [facility] - 05/07/2022 8:54 PM EST FASTING:NO FASTING: NO Becca Teran DO LAB BLOOD ORDERABLES Final R esult Performing Organization Address City/[facility]/ZIP Co de Phone Number [address], [facility] [place] [address] [facility] [address] [facility] [place] [address] * Hepatitis B Surface Antibody, Qualitative (05/05/2022 3:01 PM EST) Pathologist [facility] Hepatitis B Surface Antibody QL NON-REACT ROSENDO NON-REACT ROSENDO [facility] [place] What's [facility] Blood Venous blood specimen / Unknown 05/05/2022 3:01 PM EST 05/05/2022 3:01 PM EST Narrative [facility] - 05/07/2022 8:54 PM EST FASTING:NO FASTING: NO Becca Teran DO LAB BLOOD ORDERABLES Final R esult Performing Organization Address [facility] Co de Phone Number [facility] [address] [place] [address], [facility] [place] [address] [facility] [place] Assure[employer]t [address] [place] [address], ([address]2) [place] [address] * Varicella zoster antibody, IgG (05/05/2022 3:01 PM EST) [facility] Varicella Zoster Virus Antibody IgG 452.30 index [facility] [place] [facility]rend[facility] Comment: Index Interpretation --------- <135.00 Negative - Antibody not detected 135.00 - 164.99 Equivocal > or = 165.00 Positive - Antibody detected A positive result indicates that the patient has antibody to VZV but does not differentiate between an active or past infection. The clinical diagnosis must be interpreted in conjunction with the clinical signs and symptoms of the patient. This assay reliably measures immunity due to previous infection but may not be sensitive enough to detect antibodies induced by vaccination. Thus, a negative result in a vaccinated individual does not necessarily indicate susceptibility to VZV infection. A more sensitive test for vaccination-induced immunity is Varicella Zoster Virus Antibody Immunity Screen, ACIF. Blood Venous blood specimen / Unknown 05/05/2022 3:01 PM EST 05/05/2022 3:01 PM EST Narrative [facility] - 05/07/2022 8:54 PM EST FASTING:NO FASTING: NO us Becca Teran DO LAB BLOOD ORDERABLES Final R esult [facility] [address] [facility], [place] [address] [facility] [address] [facility], ([address]) [place] [address] * Measles, Mumps, and Rubella (MMR) Antibodies??(IgG) Panel, Immune Status (05/05/2022 3:01 PM EST) Measles Ab IgG, Immune Status 34.60 AU/mL [facility] Comment: AU/mL Interpretation ----- <13.50 Not consistent with immunity 13.50-16.49 Equivocal >16.49 Consistent with immunity The presence of measles IgG suggests immunization or past or current infection with measles virus. For additional information, please refer to http://education.[employer]/faq/UCP487 (This link is being provided for informational/ educational purposes only.) Mumps Virus Ab IgG, Immune Status 124.00 AU/mL [facility] Comment: AU/mL Interpretation ------- <9.00 Not consistent with immunity 9.00-10.99 Equivocal >10.99 Consistent with immunity The presence of mumps IgG antibody suggests immunization or past or current infection with mumps virus. Rubella Virus Ab IgG, Immune Status 1.78 Index [facility] Comment: Index Interpretation ----- <0.90 Not consistent with immunity 0.90-0.99 Equivocal > or = 1.00 Consistent with immunity The presence of rubella IgG antibody suggests immunization or past or current infection with rubella virus. 05/05/2022 3:01 PM EST 05/05/2022 3:01 PM EST Narrative [facility] - 05/07/2022 8:54 PM EST FASTING:NO FASTING: NO Becca Teran DO LAB BLOOD ORDERABLES Final R esult [facility] [address] [place] [address] [facility] [address] [facility], ([address]) [place] [address] documented in this encounter Visit Diagnoses Diagnosis Tuberculosis screening- Primary Screening examination for pulmonary tuberculosis documented in this encounter Care Teams Cloth Finishing Range Operator Chief Relationship Specialty Start Date End Date Becca Teran DO [address] [place] [address] PCP - General Family Medicine 11/15/12 aDvid Almonte, HARLEY [address] [place] [address] Registered Nurse Family Medicine 11/27/24 12/01/24 William Edgar 11/27/24 12/01/24 documented as of this encounter
--- OUTSIDE RECORDS SUMMARY | 2025-02-23 15:57 | XMS_ITS | Encounter Summary ---
Author Organization [employer] Address [address] [facility] [address] [place] [address] Care Team Providers Care Cutter Operator Tile Name Role Phone Becca Teran DO Primary Care Provider [phone] David Almonte RN Unavailable [phone] William Edgar Unavailable Reason for Visit * Reason Onset Date Comments Med Refill 06/12/2022 Encounter Details Date Type Department Care Team (Late st Contact Info) Description 06/12/[address] [facility] MEDICINE [address] [place] [address] Becca Teran DO [address] [place] [address] Mild persistent asthma without complication Social History [...] Miscellaneous Notes * Telephone Encounter - Isela Connie - 06/12/2022 2:04 PM EDT TC from [...] documented as of this encounter Care Teams Cutter Operator Tile Relationship Specialty Start Date End Date Becca Teran DO [address] [place] [address] PCP - General Family Medicine 11/15/12 David Almonte, RN [address] [place] [address] Registered Nurse Family Medicine 11/27/24 12/01/24 William Edgar 11/27/24 12/01/24 documented as of this encounter
--- OUTSIDE RECORDS SUMMARY | 2025-02-23 15:57 | XMS_ITS | Encounter Summary ---
Author Organization [employer] Address [address] [facility] 7t [place] [address] Care Team Providers Care Salesforce Specialist Name Role Phone Becca Teran DO Primary Care Provider [phone] David Almonte RN Unavailable [phone] William Edgar Unavailable Reason for Visit * Reason Comments Med Refill Encounter Details Date Type Department Care Team ([facility] st Contact Info) Description 08/16/2023 Refill [facility] MEDICINE [address] [place], [place] [phone] Becca Teran DO [address] [place] [address] Mild persistent asthma without complication Social History [...] Time PHQ-9 Depression Total Score: 0 05/23/19 1:20 PM EDT documented as of this encounter Care Teams Salesforce Specialist Relationship Specialty Start Date End Date Becca Teran DO [address] [place] [address] PCP - General Family Medicine 11/15/12 David Almonte, HARLEY [address] [place] [address] Registered Nurse Family Medicine 11/27/24 12/01/24 William Edgar 11/27/24 12/01/24 documented as of this encounter
--- OUTSIDE RECORDS SUMMARY | 2025-02-23 15:57 | XMS_ITS | Encounter Summary ---
Author Organization [employer] Address [address] [place] [address] Care Team Providers Care District Extension Service Agent Name Role Phone Becca Teran DO Primary Care Provider [phone] David Almonte RN Unavailable [phone] William Edgar Unavailable Encounter Details Date Type Department Care Team (Late st Contact Info) Description 02/18/2022 [facility] [employer] Information Management [address] [place] [address] Becca Teran DO [address] [place] [address] Social History Tobacco Use Types Packs/Day Years [...] on filedocumented in this encounter Care Teams District Extension Service Agent Relationship Specialty Start Date End Date Becca Teran DO [address] [place] [address] PCP - General Family Medicine 11/15/12 David Almonte, RN [address] [place] [address] Registered Nurse Family Medicine 11/27/24 12/01/24 William Edgar 11/27/24 12/01/24 documented as of this encounter
--- OUTSIDE RECORDS SUMMARY | 2025-02-23 15:57 | XMS_ITS | Clinical Summary ---
Author Organization [employer] Address [address] [facility] [address] [place] [address] Care Team Providers Care Ball Racker Name Role Phone Becca Teran Primary Care Provider [phone] Allergies No known active allergies Medications naproxen (Naprosyn) 500 MG tablet TAKE 1 TABLET BY MOUTH TWICE DAILY IN THE MORNING AND AT BEDTIME FOR MILD PAIN 40 tablet 1 4 Active triamcinolone (Kenalog) 0.1 % ointmentIndicati ons:Eczema, unspecified type APPLY TO THE AFFECTED AREA(S) TWICE DAILY IN THE MORNING AND AT BEDTIME NEEDED FOR RASH. DO not USE ON THE FACE, between LEGS, OR ARMPITS 80 g 5 Active albuterol (2.5 MG/3ML) 0.083% nebulizer solution Take 3 mL (2.5 mg) by nebulization every 4 (four) hours if needed for wheezing or shortness of breath. 180 mL 2 5 026 Active Incruse Ellipta 62.5 MCG/ACT aerosol powder INHALE 1 PUFF BY MOUTH EVERY DAY AT THE SAME TIME RINSE MOUTH AFTER USING. 5 Active Breo Ellipta 200-25 MCG/ACT aerosol powder INHALE 1 PUFF BY MOUTH EVERY DAY AT THE SAME TIME RINSE MOUTH AFTER USING. RINSE MOUTH AFTER USING. 5 Active cetirizine (ZyrTEC) 10 MG tablet Take 1 tablet (10 mg) by mouth Once per day. 90 tablet 3 5 026 Active montelukast (Singulair) 10 MG tabletIndication s:Moderate persistent asthma with (acute) exacerbation Take 1 tablet (10 mg) by mouth in the morning. 90 tablet 3 5 Active triamcinolone (Kenalog) 0.1 % cream mix with 1 lb of CeraVe cream and apply topically from neck down twice a day 80 g 3 5 Active hydrocortisone 2.5 % creamIndications :Eczema, unspecified type APPLY TO THE AFFECTED AREA(S) ON FACE EVERY DAY FOR ITCHING AND RASH / ECZEMA 28 g 3 5 Active Emollient (CeraVe Moisturizing) creamIndications :Eczema, unspecified type mix with 80 gram of TAC cream and apply topically from neck down twice a day 453 g 3 5 Active triamcinolone (Nasacort Allergy 24HR) 55 MCG/ACT nasal inhalerIndicatio ns:Chronic allergic rhinitis Administer 2 sprays into each nostril Once per day. 48 g 3 5 Active fluocinolone (Serena-Smoothe) 0.01 % external oil APPLY TO THE AFFECTED AREA(S) TWICE DAILY NEEDED FOR ECZEMA. AVOID FACE, between LEGS, AND axilla 118.28 mL 1 5 Active albuterol (Ventolin HFA) 108 (90 Base) MCG/ACT inhalerIndicatio ns:Mild persistent asthma without complication INHALE 2 PUFFS BY MOUTH EVERY 4 HOURS NEEDED FOR WHEEZING OR SHORTNESS OF BREATH 18 g 2 5 Active metroNIDAZOLE (Flagyl) 500 MG tabletIndication s:Vaginal discharge Take 1 tablet (500 mg) by mouth 2 times daily for 7 days. 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 Moderate persistent asthma 09/15/2017 Chronic allergic rhinitis 09/15/2017 Eczema 04/09/2014 Resolved Problems Problem Noted Date Diagnosed Date Resolved Date Urinary frequency 09/23/2023 07/26/2024 Bacterial vaginosis 08/06/2023 02/21/20 25 Vaginal discharge 08/06/2023 07/26/2024 Assessment & Plan (07/06/2024 4:26 PM EDT): Will treat for BV and follow-up vaginal swab results Follow-up with PCP Assessment & Plan (09/23/2023 3:05 PM EDT): Patient will be contacted with results She may use now medication that she has at home Sore throat and laryngitis 06/14/2023 0 07/26/2024 Assessment & Plan (06/14/2023 5:19 PM EDT): Most likely residual from recent URI. Advised to increase water intake, throat lozenges several times per day and do gargles with warm water and salt. Take tylenol prn pain. Fu swab results and CT/NG pharyngeal swab. Sore throat 06/14/2023 07/26/2024 Folliculitis 10/08/2022 04/15/2023 Assessment & Plan (10/08/2022 11:12 PM EDT): From Sx and exam, most likely has folliculitis after waxing that area. -Advise to avoid shaving or waxing. -Warm compresses -Doxycycline 100 mg BID for 7 d (advised to avoid sun exposure) -Alarm signs and Sx discussed. Encounters Date Type Department Care Team Description 02/23/2025 1:40 PM EST Office Visit [facility] [address] [place] [address] Vaginal discharge 02/23/2025 Travel 02/20/2025 11:30 AM EST Office Visit [facility] [address] [place] [address] Becca Teran DO Acute pain of left knee (Primary Dx); Encounter for immunization 02/20/2025 Travel 02/19/[address] [address] Becca Teran DO Chart Prep 02/19/[address] [address] Becca Teran DO Nurse Triage 12/14/2024 10:30 AM EDT Procedure Visit [address] [address] Shena Hensley, CNM Nexplanon removal 12/14/[address] [address] Becca Teran DO Mild persistent asthma without complication 12/14/2024 Travel 12/13/[address] [address] Becca Teran DO chartprep 12/01/2024 Patient Outreach [address] [address] Becca Teran DO Care Coordination (C3/W William Edgar, returned call_declined CM program ) 12/01/2024 Patient Outreach [address] [address] Becca Teran DO Care Coordination (C3/MICHELLE Edgar, TC #2 initial outreach_lvm ) 11/27/2024 Patient Outreach [address] [address] Becca Teran DO Care Coordination (C3/MICHELLE Edgar, Initial outreach attempt_lvm) 11/27/2024 Telephone [facility] [address] [place] [address] Nicky Lainez MA 11/27/2024 Patient Outreach [address] [address] Becca Teran DO Care Coordination (C3/MICHELLE Edgar, Chart review) 11/27/2024 Patient Outreach [facility] [address] [place], [place] [phone] Becca Teran DO Care Coordination (C3- chart review) 11/27/2024 Patient Outreach [address] [address] Becca Teran DO from Last 3 Months Immunizations Immunization Administration Dates Next Due HPV 9-Valent 01/09/2021,09/30/2018 Hep B, adult 02/20/2025,11/20/2022,05/22/2022 Influenza injectable quadriv alent preservative free 05/01/2022,01/19/2018 Influenza, IIV3, injectable 04/09/2014 Pfizer Covid-19 Vaccine 12+ 04/15/2022, Pfizer Covid-19 Vaccine 12+ Bivalent 06/15/2022 Pneumococcal Conjugate PCV 20 02/20/2025 Tdap 09/28/2014 Family History Medical History Relation [...] Q2 Not on file 07/18/2024 Comments Unknown Intention Date Recorded No desire to become (finding) 1 Sex and Gender Information Value Date Recorded [...] (180 lb) 02/23/2025 1:59 PM EST Height 167.6 cm (5' 6 ) 02/20/2025 12:08 PM EST Body Mass Index 29.05 02/20/2025 12:08 PM EST Plan of Treatment Health Maintenance Due Date Last Done Comments Disability Screening 1995 HPV Vaccines (3 - 3-dose series) 04/03/2021 01/09/2021, 09/30/2018 HPV/Cotest 06/05/2023 DTaP/Tdap/Td Vaccines (2 - T d or Tdap) 09/28/2024 09/28/2014 COVID-19 Vaccine ( - 2024-2 6 season) 2024 06/15/2022, 04/15/2022, 03/25/2022 Influenza Vaccine (#1) 2024 , 01/19/2018, 04/09/2014 SDOH Screening 07/18/2025 07/18/2024 Alcohol/Substance Use Screening 07/26/2025 07/26/2024 Cervical Cancer Screening 11/20/2025 Pap Smear 11/20/2025 11/20/2022, 05/12/2021 Family Planning (PISQ) 12/14/2025 12/14/2024 Depression Screening 02/20/2026 02/20/2025, 02/20/2025 Tobacco Screening 02/23/2026 02/23/2025 Zoster Vaccines (1 of 2) 06/05/2043 RSV Patients and Patients Aged 60 years or older (1 - 1-dose 75+ series) 2068 HIV Screening Completed 05/27/2022, 11/17/2021 Hepatitis C Screening Completed 05/27/2022 , 11/17/2021 Hepatitis B Vaccines Completed 02/20/2025, 11/20/2022, 05/22/2022 Pneumococcal Vaccine: Pediatrics (0 to 5 Years) and At-Risk Patients (6 to 49) Years Completed 02/20/2025 HIB Vaccines Aged Out No longer eligi [...] PM EST Acute pain of left knee SD REMOVAL NON-BIODEGRADABLE DRUG DELIVERY IMPLANT Routine 12/14/2024 10:44 AM EDT Nexplanon removal PAP SMEAR Routine 11/20/2022 12:48 PM EDT HEPATITIS C AB W/RFL RNA, PCR W/RFL GENOTYPE,LIPA Routine 05/27/2022 2:00 PM EDT Encounter for routine adult health examination without abnormal findings HIV 1/2 ANTIGEN/ANTIBODY, FOURTH GENERATION W/RFL Routine 05/27/2022 2:00 PM EDT Encounter for routine adult health examination without abnormal findings from Last 3 Months or Most Recently Relevant to Health Maintenance Results * XR Knee 3 Views Left (02/23/2025 2:50 PM EST) Anatomical Region Laterality Modality Lower Extremities, Knee Left Radiogra phic Imaging 02/23/2025 2:50 PM EST Narrative 02/23/2025 3:04 PM EST [address] [address] XRay Report Signed Patient: Danii Souza MR#: [id number] 51 : 1995 Acct:[id number] Age/Sex: 29 / F ADM Date: 02/23/25 Loc: [facility] Attending Dr: Becca Teran DO Ordering Physician: Becca Teran DO Date of Service: 02/23/25 Procedure(s): XR knee LT 3V Accession Number(s): [id number] cc: Becca Teran DO Reason for Exam: [...] Gregory Lino MD 02/23/2025 03:01 PM EST Dictated By: Gregory Hansen MD Signed By: <Electronically signed by Gregory Lutz MD in OV> 02/23/25 1501 DD/ 1450 TD/TT: 02/23/25 1458 Director Of Partner Marketing: Procedure Note Donotuseinterpreter, Image - 02/23/[address] [address] XRay Report Signed Patient: Danii SouzaMR#: [id number] 49 : 1995Acct:[id number] Age/Sex: 29 / FADM Date: 02/23/25 Loc: [facility] Attending Dr: Becca Teran DO Ordering Physician: Becca Teran DO Date of Service: 02/23/25 Procedure(s): XR knee LT 3V Accession Number(s): [id number] cc: Becca Teran DO Reason for Exam: [...] by: Gregory Lino MD 02/23/2025 03:01 PM [facility] Dictated By: Gregory Hansen MD Signed By: <Electronically signed by Gregory Lutz MDin OV> 02/23/25 1501 DD/ 1450 TD/TT: 02/23/25 1458 Director Of Partner Marketing: Becca Teran DO IMG XR PROCEDURES Final Resu lt * SD REMOVAL NON-BIODEGRADABLE DRUG DELIVERY IMPLANT (12/14/2024 10:44 AM EDT) Shena Self CNM - 12/14/2024 10:44 AM EDT Shena Hensley CNM 12/14/2024 11:12 AM Insertion/Removal of Contraceptive Capsule Date/Time: 12/14/2024 10:44 AM Performed by: Shena Hensley CNM Authorized by: Shena Hensley CNM Confirmed correct patient, procedure, site, and patient consented: Yes Participating Staff: Shena Hensley CNM Consent: Consent obtained: Verbal and written Consent given by: Patient Procedural risks and benefits discussed: Yes Instructions and paperwork completed: yes [place] Protocol: Patient states understanding of procedure being performed: yes Site marked: yes Indication: Indication: presence of non-biodegradable drug delivery implant Pre-procedure: Pre-procedure timeout performed: yes Prepped with: povidone-iodine Local anesthetic: 2ml 2% lidocaine. The site was cleaned and prepped in a sterile fashion: yes Procedure: Procedure: Removal Small stab incision was made in arm: yes Left/right: Left Site was closed with steri-strips and pressure bandage applied: yes Comments: Implant removed intact, easily. us Shena Hensley CNM IN CLINIC/BEDSIDE ORDERAB LES Final Result * Pap Smear (11/20/2022 12:48 PM EDT) 11/20/2022 12:4 8 PM EDT 11/23/2022 9:30 AM EDT [facility] - 12/01/2022 2:00 PM EDT ----- ------- Name: HarleyDanii Age/Sex: 27/F : 1995 Unit#: [id number] Attend Dr: Becca Teran DO Re11/20/22 Status: [facility] Location: HO.HHCLNP Disch: ----- ------- SPEC : [id number] RECD: 11/23/22 STATUS: LORIE CARBONE NUM: [id number] CAROLYN: 11/20/22-[address] [facility] [address]: Becca Teran DO ENTERED: 11/23/22-1214 SP TYPE: Pap Smr ESTEFANY LU: ORDERED: Pap Smear Interpretation Satisfactory for evaluation. Negative for intraepithelial lesion or malignancy. Clinical Information LMP: Unknown date Previous PAP test: Unknown date/findings Material Received ThinPrep-Cervical ----- ------- Signed (signature on file) Felicitas Lim 12/01/22 1400 ----- ------- END OF REPORT us Becca Teran DO LAB CYTOLOGY ORDERABLES Bethany whitfield Result [facility] [address] [place] [phone] * Hepatitis C Antibody with Reflex to HCV RNA,PCR w/Reflex to Genotype, LiPA (05/27/2022 2:00 PM EDT) Hepatitis C Antibody NON-REACT ROSENDO NON-REACT ROSENDO [facility] Index 0.05 <1.00 [facility] Comment: HCV antibody was non-reactive. There is no laboratory evidence of HCV infection. In most cases, no further action is required. However, if recent HCV exposure is suspected, a test for HCV RNA (test code 89013) is suggested. For additional information, please refer to http://education.[employer]/faq/YSU848 (This link is being provided for informational/ educational purposes only.) 05/27/2022 2:00 PM EDT 05/27/2022 2:01 PM EDT Narrative [facility] - 05/28/2022 2:31 PM EDT FASTING:NO FASTING: NO Becca Teran DO LAB BLOOD ORDERABLES Final R esult Performing Organization Address City/[facility]/ZIP Co de Phone Number [facility] [address], [place] [address] [facility] [address] [place] [address] * HIV-1/2 Antigen and Antibodies, Fourth Generation, with Reflexes (05/27/2022 2:00 PM EDT) [facility] HIV Antigen/Antibody, 4th Generation NON-REAC TIVE NON-REAC TIVE [facility] Comment: HIV-1 antigen and HIV-1/HIV-2 antibodies were not detected. There is no laboratory evidence of HIV infection. PLEASE NOTE: This information has been disclosed to you from records whose confidentiality may be protected by state law. If your state requires such protection, then the state law prohibits you from making any further disclosure of the information without the specific written consent of the person to whom it pertains, or as otherwise permitted by law. A general authorization for the release of medical or other information is NOT sufficient for this purpose. For additional information please refer to http://education.[employer]/faq/NZT013 (This link is being provided for informational/ educational purposes only.) The performance of this assay has not been clinically validated in patients less than 2 years old. Blood Venous blood specimen / Unknown 05/27/2022 2:00 PM EDT 05/27/2022 2:01 PM EDT Narrative [facility] - 05/28/2022 2:31 PM EDT FASTING:NO FASTING: NO Becca Teran DO LAB BLOOD ORDERABLES Final R esult [facility] [address], [place] [address] [facility] [address] [place] [address] from Last 3 Months or Most Recently Relevant to Health Maintenance [place] [address] [address] C3 Care Teams Ball Racker Relationship Specialty Start Date End Date Becca Teran DO [address] [place] [address] PCP - General Family Medicine 11/15/12
--- OUTSIDE RECORDS SUMMARY | 2025-02-23 15:57 | XMS_ITS | Encounter Summary ---
Author Organization [employer] Address [address] [place] [address] [place] [address] Care Team Providers Care Cyber Security Name Role Phone JeffryBecca Primary Care Provider + [phone] David Almonte RN Unavailable [phone] William Edgar Unavailable Encounter Details Date Type Department Care Team ([facility] st Contact Info) Description 12/29/2023 Orders Only [facility] [address] [place], [place] [phone] Rufus Zayas MD [address] [place] [address] Bacterial vaginosis Social History Tobacco Use Types [...] documented as of this encounter Care Teams Cyber Security Relationship Specialty Start Date End Date Becca Teran DO [address] [place] [address] PCP - General Family Medicine 11/15/12 David Almonte, HARLEY [address] [place] [address] Registered Nurse Family Medicine 11/27/24 12/01/24 William Edgar 11/27/24 12/01/24 documented as of this encounter
--- OUTSIDE RECORDS SUMMARY | 2025-02-23 15:57 | XMS_ITS | Clinical Summary ---
Author Organization [address] [place] [address] Address [address] [place] [address] Phone Care Team Providers Care Diesel Engine I Pipe Fitter Name Role Phone Physician, Pcp Unknown Primary [...] Cervical Cancer Screening: P ap Smear 2014 HPV Vaccines (1 - 3-dose SCD M series) 2020 Depression Screening 03/08/2024 HIV Screening 09/01/2024 Hepatitis C Screening 09/01/2024 Social Influencers of Health Screening 09/01/2024 COVID-19 Vaccine (1 - 2024-2 6 season) 2024 Influenza Vaccine (#1) 2024 RSV Immunization Adult Patie nts (1 - 1-dose 75+ series) 2068 HIB Vaccines Aged Out No longer eligi [...] 5 Years) and At-Risk Patients (6 to 49 Years) Aged Out No longer eligible b ased on patient's age to complete this topic RSV Immunization Patients Un jeffrey 20 months Aged Out No longer eligible b ased on patient's age to complete this topic Varicella Vaccines Aged Out No longer eligible based on patient's age to complete this topic Insurance MEDICAID - [place] Care Teams Diesel Engine I Pipe Fitter Relationship Specialty Start Date End Date Physician, Pcp Unknown PCP - General 09/01/24
--- OUTSIDE RECORDS SUMMARY | 2025-02-23 15:57 | XMS_ITS | Encounter Summary ---
Author Organization [facility] [employer] Address [address] [facility] [address] [place] [address] Care Team Providers Care Door Technician Name Role Phone Becca Teran DO Primary Care Provider [phone] David Almonte RN Unavailable [phone] William Edgar Unavailable Encounter Details Date Type Department Care Team (Late st Contact Info) Description 04/13/2022 Orders Only [facility] [address] [place] [address] Vane Brian LPN Social History Tobacco Use [...] on filedocumented in this encounter Care Teams Door Technician Relationship Specialty Start Date End Date Becca Teran DO [address] [place] [address] PCP - General Family Medicine 11/15/12 David Almonte, RN [address] [place] [address] Registered Nurse Family Medicine 11/27/24 12/01/24 William Edgar 11/27/24 12/01/24 documented as of this encounter
--- OUTSIDE RECORDS SUMMARY | 2025-02-23 15:57 | XMS_ITS | Clinical Summary ---
Author Organization [facility] Address [address] [address] Phone Care Team Providers Care Optoelectronics Engineer Name Role Phone Becca Teran DO Primary Care Provider Medications vitamins with ferrous fumarate- folic acid 28 mg iron- 800 mcg Tab Take 1 tablet by mouth daily. Active cetirizine (ZYRTEC) 10 MG tablet Take 10 mg by mouth daily. Active Social History Tobacco Use Types Packs/Day Years Used Date Smoking Tobacco: Never Smokeless Tobacco: Never Education Answer Date Recorded Are you interested in more education? Not on bruno e 07/03/2022 Are you concerned about learning? Not on file 07/03/2022 No 07/03/2022 No 07/03/2022 Digital Access Answer Date Recorded No 08/01/2022 No 08/01/2022 No 08/01/2022 Reliable internet access at home? Not on file 08/01/2022 Device with a working camera? Not on file Comments Unknown Sex and Gender Information Value Date Recorded Sex Assigned at Female 03/15/2023 3:49 PM EST Legal Sex Female 10:32 AM EDT Gender Identity Female 03/15/2023 3:49 PM EST Sexual Orientation Straight 03/15/2023 3: 49 PM EST Plan of Treatment Health Maintenance Due Date Last Done Comments DEPRESSION SCREENING 2005 HEPATITIS C SCREENING 06/05/2011 HIV ONE-TIME SCREENING (18-6 5 YEARS) 06/05/2011 PAP SMEAR 2014 Adult Td,Tdap Booster 09/28/2024 09/28/2014 INFLUENZA VACCINE (#1) 2024 8, 04/09/2014 COVID-19 VACCINE (2024-2 6 season) 2024 SMOKING STATUS SCREENING (On ce After 26 Yrs) Completed 08/22/2019 HEPATITIS A VACCINES Aged Out No long er eligible based on patient's age to complete this topic HIB VACCINES Aged Out No longer eligi ble based on patient's age to complete this topic MENINGOCOCCAL VACCINES (ACWY) Aged Out No longer eligible based on patient's age to complete this topic MENINGOCOCCAL VACCINES (B) Aged Out N o longer eligible based on patient's age to complete this topic PNEUMOCOCCAL VACCINES (0-49 years) Aged Out No longer eligible b ased on patient's age to complete this topic Medical Devices Not on file Insurance C3 ACO C3 ACO C3 ACO C3 ACO Care Teams Optoelectronics Engineer Relationship Specialty Start Date End Date Becca Teran DO [address] [place] [address] PCP - General Family Medicine 02/10/23 Additional Source Comments The information contained in this document represents components of the legal health record. It is not the complete legal health record.[facility]
--- OUTSIDE RECORDS SUMMARY | 2025-02-23 15:57 | XMS_ITS | Encounter Summary ---
Author Organization [facility] [employer] Address [address] [facility] 7t [place] [address] Care Team Providers Care Costume Specialist Name Role Phone Becca Teran DO Primary Care Provider + [phone] Encounter Details Date Type Department Care Team (Latest Contact Info) Description 02/20/2025 Travel Social History Tobacco Use Types Packs/Day [...] documented as of this encounter Care Teams Costume Specialist Relationship Specialty Start Date End Date Becca Teran DO [address] [place] [address] PCP - General Family Medicine 11/15/12 documented as of this encounter
--- OUTSIDE RECORDS SUMMARY | 2025-02-23 15:57 | XMS_ITS | Encounter Summary ---
Author Organization [employer] Address [address] [facility] [address] [place] [address] Care Team Providers Care Logistic Specialist Name Role Phone Becca Teran DO Primary Care Provider [phone] David Almonte RN Unavailable [phone] William Edgar Unavailable Reason for Visit * Reason Comments Med Refill Encounter Details Date Type Department Care Team ([facility] st Contact Info) Description 02/01/2023 Refill [facility] [address] [place], [place] [phone] Becca Teran DO [address] [place] [address] Social History Tobacco Use Types Packs/Day Years [...] documented as of this encounter Care Teams Logistic Specialist Relationship Specialty Start Date End Date Becca Teran DO [address] [place] [address] PCP - General Family Medicine 11/15/12 David Almonte, HARLEY [address] [place] [address] Registered Nurse Family Medicine 11/27/24 12/01/24 William Edgar 11/27/24 12/01/24 documented as of this encounter
--- OUTSIDE RECORDS SUMMARY | 2025-02-23 15:57 | XMS_ITS | Encounter Summary ---
Author Organization [employer] Address [address] [facility] [address]t [place] [address] Care Team Providers Care Cop Breaker Name Role Phone Becca Teran DO Primary Care Provider + [phone] Encounter Details Date Type Department Care Team (Latest Contact Info) Description 02/23/2025 Travel Social History Tobacco Use Types Packs/Day [...] documented as of this encounter Care Teams Cop Breaker Relationship Specialty Start Date End Date Becca Teran DO [address] [place] [address] PCP - General Family Medicine 11/15/12 documented as of this encounter
--- OUTSIDE RECORDS SUMMARY | 2025-02-23 15:57 | XMS_ITS | Encounter Summary ---
Author Organization [employer] Address [address] [place] [address] [address], [place] [address] Care Team Providers Care Rib Cloth Knitter Name Role Phone Becca Teran DO Primary Care Provider [phone] David Almonte RN Unavailable [phone] William Edgar Unavailable Reason for Visit * Reason Onset Date Comments call back 05/01/2022 Encounter Details Date Type Department Care Team (Late st Contact Info) Description 05/01/2022 Telephone [facility] [address] [place], [place] [phone] Becca Teran DO [address] [place], [place] [phone] call back Social History Tobacco Use Types [...] on filedocumented in this encounter Care Teams Rib Cloth Knitter Relationship Specialty Start Date End Date Becca Teran DO [address] [place] [address] PCP - General Family Medicine 11/15/12 David Almonte, HARLEY [address] [place] [address] Registered Nurse Family Medicine 11/27/24 12/01/24 William Edgar 11/27/24 12/01/24 documented as of this encounter
--- OUTSIDE RECORDS SUMMARY | 2025-02-23 15:57 | XMS_ITS | Encounter Summary ---
Author Organization [employer] Address [address] [facility] [address] [place] [address] Care Team Providers Care Executive Administrator Name Role Phone JeffryBecca Primary Care Provider + [phone] David Almonte RN Unavailable [phone] William Edgar Unavailable Encounter Details Date Type Department Care Team (Late st Contact Info) Description 07/21/2023 Orders Only [facility] MEDICINE [address] [place], [place] [phone] Caroline Latham MD [address] [place], [place] [phone] Bacterial vaginosis (Primary Dx) Social History Tobacco [...] documented as of this encounter Care Teams Executive Administrator Relationship Specialty Start Date End Date Becca Teran DO [address] [place] [id number] PCP - General Family Medicine 11/15/12 David Almonte, [place] [address] [place] [id number] Registered Nurse Family Medicine 11/27/24 12/01/24 William Edgar 11/27/24 12/01/24 documented as of this encounter
--- OUTSIDE RECORDS SUMMARY | 2025-02-23 15:57 | XMS_ITS | Encounter Summary ---
Author Organization [employer] Address [address] [facility] [address] [place] [address] Care Team Providers Care Mineral Engineer Name Role Phone Becca Teran DO Primary Care Provider + [phone] Reason for Visit * Reason Onset Date Comments Chart Prep 02/19/2025 Encounter Details Date Type Department Care Team (Late st Contact Info) Description 02/19/2025 Telephone [facility] MEDICINE [address] [place], [place] [phone] Becca Teran DO [address] [place], [place] [phone] Chart Prep Social History Tobacco Use Types Packs/Day Years [...] encounter Miscellaneous Notes * Telephone Encounter - Carol Barriga MA - 02/19/2025 12:15 PM EST Chart Prep Labs: not done Images: not applicable Referrals: not applicable Vaccines due: Covid, Flu, PCV20, Tdap, Hep B, and HPV Screenings: LMP Overdue care gaps: PHQ-9, YEFRI-7, and Disability screen documented in this encounter Plan of Treatment Not on file documented as of this encounter Visit Diagnoses Not on filedocumented in this encounter Additional Health Concerns Assessment Noted Time PHQ-9 Depression Total Score: 0 07/27/19 25 10:21 AM EDT documented as of this encounter Care Teams Mineral Engineer Relationship Specialty Start Date End Date Becca Teran DO [address] [place] [address] PCP - General Family Medicine 11/15/12 documented as of this encounter
--- OUTSIDE RECORDS SUMMARY | 2025-02-23 15:57 | XMS_ITS | Encounter Summary ---
Author Organization [employer] Address [address] [facility] [address] [place] [address] Care Team Providers Care Regional Sales Coordinator Name Role Phone Becca Teran DO Primary Care Provider [phone] David Almonte RN Unavailable [phone] William Edgar Unavailable Reason for Visit * Reason Onset Date Comments Appointment Request 10/07/2022 Encounter Details Date Type Department Care Team ([facility] st Contact Info) Description 10/07/2022 Telephone [facility] MEDICINE [address] [place], [place] [phone] Becca Teran DO [address] [place], [place] [phone] Appointment Request Social History Tobacco Use Types [...] r/s aptp for Pap Smear on 09/14/2022. 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 Please contact pt at [phone] documented in this encounter Plan of Treatment Not on file documented as of this encounter Visit Diagnoses Not on filedocumented in this encounter Additional Health Concerns Assessment Noted Time PHQ-9 Depression Total Score: 0 05/23/19 23 1:20 PM EDT documented as of this encounter Care Teams Regional Sales Coordinator Relationship Specialty Start Date End Date Becca Teran DO [address] [place] [address] PCP - General Family Medicine 11/15/12 David Almonte, HARLEY [address] [place] [phone] Registered Nurse Family Medicine 11/27/24 12/01/24 William Edgar 11/27/24 12/01/24 documented as of this encounter
--- OUTSIDE RECORDS SUMMARY | 2025-02-23 15:57 | XMS_ITS | Encounter Summary ---
Author Organization [employer] Address [address] [facility] [address] [place] [address] Care Team Providers Care Jewel Diameter Gauger Name Role Phone Becca Teran DO Primary Care Provider [phone] David Almonte RN Unavailable [phone] William Edgar Unavailable Reason for Visit * Reason Comments Med Refill Encounter Details Date Type Department Care Team ([facility] st Contact Info) Description 09/26/2024 Refill [facility] MEDICINE [address] [place], [place] [phone] Becca Teran DO [address] [place] [address] Mild persistent asthma without complication Social History Tobacco Use Types Packs/Day Years Used Date Smoking Tobacco: Never Passive Smoke Exposure: Never Smokeless Tobacco: Never Alcohol Use Standard Drinks/Week Comments Not Currently 0 (1 standard drink = 0.6 oz pur e alcohol) Depression Answer Date Recorded Patient Health Questionnaire-9 Score 0 07/26/2024 Patient Health Questionnaire-9 Score 0 07/26/2024 Last PHQ-9: Questionnaire Data Not on file 0 07/26/2024 Housing Stability Answer Date Recorded What is [...] Date Recorded Patient Health Questionnaire-2 Score 0 07/26/2024 Internet Access Answer Date Recorded Internet Access [...] documented as of this encounter Care Teams Jewel Diameter Gauger Relationship Specialty Start Date End Date Becca Teran DO [address] [place] [address] PCP - General Family Medicine 11/15/12 David Almonte, [place] [address] [place] [address] Registered Nurse Family Medicine 11/27/24 12/01/24 William Edgar 11/27/24 12/01/24 documented as of this encounter
[2025-02-24 01:31] LABS: Bacterial Vaginosis PCR POSITIVE (Negative); Candida Group PCR NOT DETECTED (Not Detect); Candida glab krusei PCR NOT DETECTED (Not Detect); Trichomonas vaginalis PCR NOT DETECTED (Not Detect)
[2025-02-24 02:02] LABS: CT PCR NOT DETECTED (Not Detect.); NG PCR NOT DETECTED (Not Detect.)
== END 2025-02-23 14:31 | disposition home or self-care (01) ==
LOC: HO.HHCX 14:30
PROVIDERS: Registered Nurse; PCP Family Medicine; Visit Provider Family Medicine
DX: M25.462 Effusion, left knee (principal); M25.562 Pain in left knee; N89.8 Other specified noninflammatory disorders of vagina; M79.89 Other specified soft tissue disorders; Z20.2 Contact with and (suspected) exposure to infections with a predominantly sexual mode of transmission
CPT/HCPCS: 73562; 81515; 87491; 87591

== ENCOUNTER → 2025-02-23 14:35 | Outpatient (BNV) | payer MEDICAID, SELFPAY | PROVIDERS: PCP Family Medicine; Visit Provider Radiology Diagnostic Radiology | DX: M25.562 Pain in left knee (principal); M79.89 Other specified soft tissue disorders | CPT/HCPCS: 73562 ==